=== PATIENT | male | born 1935 | race Caucasian/White ===

== ENCOUNTER 2016-06-18 07:28 | Outpatient (CLI) | payer MEDICARE, OTHER ==
[~2016-06-18] VITALS: Ht 175.3 cm; Wt 84.1 kg
--- NOTE | ~2016-06-18 | HEMODYNAMI ---
PATIENT:JESSE BAILEY MEDICAL RECORD: [id number] : 35 LOCATION:[facility] ADMISSION DATE: 06/18/16 Generatedon:06/18/201610:42 Patient name: JESSE BAILEY Patient #: [id number] : 1935 Date of study: 06/18/2016 Page: Of Hemodynamic Procedure Report Patient Data Patient Demographics Procedure consent was obtained First Name: JESSE Gender: Male Last Name: LINUS : 1935 Middle Initial: L Age: 81 year(s) Patient #: [id number] Race: Unknown SSN: [id number] Additional ID: [id number] Contact details Address: [address] [place] [address] [place] State: [place] City: [place] Zip code: [address] Past Medical History Allergies Allergen Reaction Date Comments Reported Other allergy 06/18/2016 NIACIN, MILK Admission Admission Data Admission Date: 06/18/2016 Admission Time: 7:28 Arrival Date: 06/18/2016 Arrival Time: 9:30 Admit Source: Other Insurance Payor: Medicare Height (in.): 69 BSA: 1.99 (m2) Height (cm.): 175.26 BMI: 27.17 (kg/m2) Weight (lbs.): 184 Weight (kg.): 83.46 Lab Results Lab Result Date: 06/18/2016 Lab Result Time: 8:14 Biochemistry Name Units Result Min Max BUN mg/dl 18 --(---*)-- 7 18 Creatinine mg/dl 1.1 --(--*-)-- 0.6 1.3 CBC Name Units Result Min Max Hemoglobin g/dl 14.4 --(*---)-- 13.5 17.5 Procedure Procedure Types Cath Procedure Diagnostic Procedure [facility] w/Coronaries FFR/IVUS Intra-Coronary IVUS Initial PCI Procedure Coronary Stent Initial Procedure Description Procedure Date Procedure Date: 06/18/2016 Procedure Start Time: 10:19 Procedure End Time: 10:40 Procedure Staff Name Function Jairon Eldridge MD Performing Physician Manuel Carmen RT Scrub Katina Venegas RN Nurse Valdez Marsh RT [employer] Agent Amanda Farmer RT Monitor Procedure Data Cath Procedure Fluoroscopy Diagnostic fluoroscopy Total fluoroscopy Time: 7.9 time: 7.9 min min Diagnostic fluoroscopy Total fluoroscopy dose: dose: 1358 mGy 1358 mGy Contrast Material Contrast Material Type Amount (ml) Isovue 370 157 Entry Location Entry Primary Successful Side Size Upsize Upsize Entry Closure Huffman ccessful Closure Location (Fr) 1 (Fr) 2 (Fr) Remarks Device Remarks Radial Right 6 Fr Mechanical artery Short Compression Estimated blood loss: 5 ml Diagnostic catheters Device Type Used For End Catheter Placement Terumo 5Fr Jose 110cm Multi-vessel catheter Angiography Cordis Infinity 5Fr AR 2 Right Coronary MOD catheter Angiography Procedure Complications No complications Procedure Medications Medication Administration Route Dosage Oxygen NC 2 l/min Heparin Flush Bag added to field 2 bags (1000units/500ml NS) Lidocaine 2% added to field 20 Radial Cocktail added to field 1 syringe (Verapomil 2mg/Nitro 400mcg/Heparin 1500units) Benadryl I.V. 50 mg Plavix P.O. 75 mg Versed I.V. 1 mg Fentanyl I.V. 50 mcg Radial Cocktail I.A. 1 syringe (Verapomil 2mg/Nitro 400mcg/Heparin 1500units) Versed I.V. 1 mg Fentanyl I.V. 50 mcg Fentanyl I.V. 50 mcg Heparin Bolus I.V. 4000 units Hemodynamics Rest BSA: 1.99 (m2) HGB: 14.4 (g/dl) O2 Consumption: Estimated: 209.82 (ml/min) O2 Co nsumption indexed: Estimated:105.44 (ml/min/m) Heart Rate: 47 (bpm) Pressure Samples Time Site Value (mmHg) Purpose Heart Use Rate(bpm) 10:21 LV 71/14,15 Snapshot 97 10:22 AO 110/44(70) Pullback 62 10:22 LV 110/-8,13 Pullback 62 Gradients Valve Time Site 1 Site 2 Mean SEP/DFP Peak To Heart Use (mmHg) (sec/min) Peak Rate (mmHg) (bpm) Aortic 10:22 LV AO 4 19 0 62 110/-8,13 110/44(70) Calculations Valve P-P Mean Valve Index Valve Source Name Gradient Area Flow (cm2) Aortic 0 4 0 4 Snapshots Pre Cath Intra NCS Post Cath Vital Signs Time Heart Resp SPO2 NIBP (mmHg) Rhythm Pain Sedation Rate (ipm) (%) Status Level (bpm) 9:34:18 48 16 100 138/74(126) SB 0 (11) 10(A) , No pain 9:39:38 50 16 100 203/78(185) SB 0 (11) 10(A) , No pain 9:44:16 52 19 99 200/76(167) SB 0 (11) 10(A) , No pain 9:48:49 53 16 98 184/79(139) SB 0 (11) 10(A) , No pain 9:53:19 51 16 96 161/70(137) SB 0 (11) 10(A) , No pain 9:57:46 50 16 95 142/63(119) SB 0 (11) 10(A) , No pain 10:02:10 51 18 96 140/62(118) SB 0 (11) 10(A) , No pain 10:06:32 51 17 95 140/66(110) SB 0 (11) 10(A) , No pain 10:10:58 49 15 95 136/59(110) SB 0 (11) 10(A) , No pain 10:15:57 50 16 95 Measuring SB 0 (11) 10(A) , No pain 10:15:59 50 16 95 133/65(108) SB 0 (11) 10(A) , No pain 10:20:21 49 25 95 151/61(126) SB 0 (11) 9(A) , No pain 10:24:40 54 16 96 131/66(112) SB 0 (11) 9(A) , No pain 10:28:58 55 18 97 149/66(118) SB 0 (11) 9(A) , No pain 10:33:57 53 16 97 Measuring SB 0 (11) 9(A) , No pain 10:34:23 63 16 97 139/63(114) SB 0 (11) 9(A) , No pain 10:38:43 55 16 98 158/72(126) SB 0 (11) 9(A) , No pain 10:40:24 52 12 97 160/72(128) SB 0 (11) 9(A) , No pain Medications Time Medication Route Dose Verified Delivered Reason Note s Effectiveness by by 9:30:55 Plavix P.O. 75 mg Jairon Katina for Chente Venegas RN antiplatelet therapy 9:32:44 Oxygen NC 2 l/min Jairon Katina Per physician Chente Venegas RN 9:32:51 Heparin Flush added 2 bags Jairon De La O for local Bag to Cehnte Eldridge MD anesthetic (1000units/500ml field NS) 9:32:57 Lidocaine 2% added 20ml Jaironjuanito De La O used for to vial Chente Eldridge MD procedure field 9:33:03 Radial Cocktail added 1 Jairon Jairon used for (Verapomil to syringe Chente Eldridge MD procedure 2mg/Nitro field 400mcg/Heparin 1500units) 9:33:12 Benadryl I.V. 50 mg Jairon Katina Per physician Chente Venegas RN 10:16:08 Versed I.V. 1 mg Jairon Katina for sedation Chente Venegas RN 10:16:14 Fentanyl I.V. 50 mcg Jairon Katina for sedation Chente Venegas RN 10:18:03 Fentanyl I.V. 50 mcg Jairon Katina for sedation Chente Venegas RN 10:18:55 Versed I.V. 1 mg Jairon Katina for sedation Chente Venegas RN 10:20:49 Radial Cocktail I.A. 1 Jairon Jairon for (Verapomil syringe Chente Eldridge MD vasodilation 2mg/Nitro 400mcg/Heparin 1500units) 10:21:13 Fentanyl I.V. 50 mcg Jairon Katina for sedation Chente Venegas RN 10:28:20 Heparin Bolus I.V. 4000 Jairon Katina for dose units Chente Venegas RN anticoagulation verified wt dr eldridge Procedure Log Time Note 9:10:31 Valdez Marsh RT(R) sent for patient. Start room use. 9:26:26 ACC Patient presents with Stable Angina CCS Anginal Class 2--Slight limitation of ordinary activity. 9:26:29 Diagnostic Cath status Elective 9:26:45 Time tracking: Regular hours 9:26:49 Plan of Care:Hemodynamics will remain stable., Cardiac rhythm will remain stable., Comfort level will be maintained., Respiratory function will remain adequate., Patient/ family verbilizes understanding of procedure., Procedure tolerated without complication., Recovers from procedure without complications.. 9:26:53 Patient received from Outpatients to CCL 1 Alert and oriented. Tansferred to table in Supine position. 9:26:54 Warm blankets applied, and lee hugger turned on for patient comfort. 9::54 Correct patient and procedure confirmed by team. 9:26:55 Signed procedure consent form obtained from patient. 9:26:56 ECG and BP/O2 sat monitors applied to patient. 9:30:01 H&P Date Dictated: 06/14/2016 Within 30 days and on chart., H&P Addendum completed by physician on day of procedure. (MUST COMPLETE FOR ALL OUTPATIENTS). 9:30:02 Pre-procedure instructions explained to patient. 9:30:02 Pre-op teaching completed and patient verbalized understanding. 9:30:03 Family in waiting room. 9:30:05 Patient NPO since Midnight. 9:30:26 Patient allergic to Other allergy NIACIN, MILK 9:30:41 Is the patient allergic to Iodine/contrast media? No. 9:30:55 Plavix 75 mg P.O. was given by Katina Venegas RN; for antiplatelet therapy; 9:30:55 Is patient on blood thinner?Yes 9:31:02 ACC The patient was administered the following blood thiners within the last 24 hours: None 9:31:04 Patient diabetic? Yes. 9:31:05 If diabetic: On Metformin? No 9:31:08 Previous problem with sedation/anesthesia? No ? 9:31:09 Snore? Yes 9:31:11 Sleep apnea? Yes 9:31:12 Deviated septum? No 9:31:13 Opens mouth fully? Yes 9:31:14 Sticks out tongue? Yes 9:31:17 Airway obstruction? Yes COPD 9:31:22 Dentures? No ? 9:31:25 Pre procedure: right dorsailis pedis pulse 1+ Palpable, but thready & weak; easily obliterated 9:31:27 Modified Linus's test Ulnar < 7 seconds 9:31:29 Patient pain scale 0/10 ?. 9:31:36 IV patent on arrival in left forearm with 0.9% NaCl at [facility]. 9:31:39 Lab results completed and on chart. 9:32:19 Lab Result : BUN 18 mg/dl 9:32:19 Lab Result : Hemoglobin 14.4 g/dl 9:32:19 Lab Result : Creatinine 1.1 mg/dl 9:32:31 Right Radial & Right Groin area was prepped with chlora-prep and draped in sterile fashion 9:32:32 Alarms reviewed by R. N. 9:32:33 Sharps counted by scrub and verified by R.N. 9:32:44 Oxygen 2 l/min NC was given by Katina Venegas RN; Per physician; 9:32:51 Heparin Flush Bag (1000units/500ml NS) 2 bags added to field was given by Jairon Eldridge MD; for local anesthetic; 9:32:57 Lidocaine 2% 20ml vial added to field was given by Jairon Eldridge MD; used for procedure; 9:32:59 Use device set Radial Dx 9:33:02 Tegaderm 4 x 4 opened to sterile field. 9:33:03 Radial Cocktail (Verapomil 2mg/Nitro 400mcg/Heparin 1500units) 1 syringe added to field was given by Jairon Eldridge MD; used for procedure; 9:33:03 Acist Hand Control opened to sterile field. 9:33:03 Acist Manifold opened to sterile field. 9:33:04 Acist Syringe opened to sterile field. 9:33:05 Cardinal Cath Pack opened to sterile field. 9:33:05 Bag Decanter opened to sterile field. 9:33:05 Terumo 6Fr Slender Glidesheath opened to sterile field. 9:33:06 St Fantasma 260cm J .035 wire opened to sterile field. 9:33:12 Benadryl 50 mg I.V. was given by Katina Venegas RN; Per physician; 9:33:13 Vital chart was started 9:33:27 Rhythm: sinus rhythm 9:33:29 Full Disclosure recording started 9:34:16 Admit Source: Other 9:34:20 Patient Height : 175.26 cm 9:34:22 Patient Weight : 83.46 kg 9:34:36 Baseline sample Acquired. 9:40:51 Arrival Date: 06/18/2016 9:30:00 AM 9:40:59 Insurance Payor : Medicare 10:13:25 Physician paged 10:15:39 Physician arrived 10:15:40 --------ALL STOP TIME OUT------ 10:15:41 Final Timeout: patient, procedure, and site verified with staff and physician. All members of the team are in agreement. 10:15:45 Right Radial & Right Groin site verified by team. 10:15:49 Physical assessment completed. ASA score P 2 - A patient with mild systemic disease as per Jairon Eldridge MD. 10:15:53 Sedation plan: IV Moderate Sedation Versed, Fentanyl 10:16:08 Versed 1 mg I.V. was given by Katina Venegas RN; for sedation; 10:16:14 Fentanyl 50 mcg I.V. was given by Katina Venegas RN; for sedation; 10:18:03 Fentanyl 50 mcg I.V. was given by Katina Venegas RN; for sedation; 10:18:55 Versed 1 mg I.V. was given by Katina Venegas RN; for sedation; 10:19:07 Procedure started. 10:19:11 Local anesthetic to right radial artery with Lidocaine 2% by Jairon Eldridge MD.INITIAL ACCESS ONLY 10:19:24 A 6 Fr Short sheath was inserted into the Right Radial artery 10:20:36 A PeeplePasso 5Fr Jose 110cm catheter was advanced over the wire and used for Multi-vessel Angiography. 10:20:49 Radial Cocktail (Verapomil 2mg/Nitro 400mcg/Heparin 1500units) 1 syringe I.A. was given by Jairon Eldridge MD; for vasodilation; 10:21:13 Fentanyl 50 mcg I.V. was given by Katina Venegas RN; for sedation; 10:21:41 LV hemodynamics recorded. 10:21:42 LV gram done using STAPLES 10::45 Injector settings: Ml/sec: 5, Volume: 15, 10:22:15 EF : 60 % 10:22:53 LCA angiography performed. 10::56 Injector settings: Ml/sec: 3, Volume: 6, 10:23:39 Douglas Whisper J 300cm 0.014 guide wire opened to sterile field. 10:23:40 The TechMap BasixCompak Inflation Kit opened to sterile field. 10:24:19 Terumo TR Band Standard opened to sterile field. 10:24:36 Catheter removed. 10:24:40 A Cordis Infinity 5Fr AR 2 MOD catheter was advanced over the wire and used for Right Coronary Angiography. 10:25:56 RCA angiography performed. 10:26:00 Injector settings: Ml/sec: 3, Volume: 6, 10:27:10 [place] IVUS Catheter opened to sterile field. 10:27:16 Catheter removed. 10:27:21 Proceeding to intervention. 10:27:53 Cordis 6FR XBLAD 3.5 guide catheter opened to sterile field. 10:28:17 6 Fr xblad 3.5 guide catheter was inserted over the wire 10:28:20 Heparin Bolus 4000 units I.V. was given by Katina Venegas RN; for anticoagulation; dose verified wtih dr eldridge 10:28:23 whisper wire advanced. 10:28:26 Wire advanced across lesion. 10:28:37 IVUS catheter advanced over wire. 10:29:00 IVUS pass to LAD lesion performed. 10:32:07 IVUS catheter removed over wire. 10:34:19 Inflation number: 1 A [place] Sci Ellis 3.5 X 20 balloon was prepped and advanced across the Prox LAD, then inflated to 13 KATERYNA for 0:10 (min:sec). 10:34:28 Inflation number: 2 The [place] Sci Ellis 3.5 X 20 balloon was reinflated across the Prox LAD, to 13 KATERYNA for 0:10 (min:sec). 10:34:41 Balloon removed over the wire. 10:36:47 Inflation Number: 3 A Medtronic Resolute 3.5 X 34 stent was prepped and advanced across the Prox LAD. The stent was deployed at 15 KATERYNA for 0:10 (min:sec). 10:37:56 Stent catheter was removed intact over wire. 10:37:58 Wire removed. 10:37:58 Guide catheter removed. 10:38:23 Sheath removed intact; hemostasis achieved with Mechanical Compression to the Right Radial artery. 10:38:25 Procedure ended.(Physican Out) 10:39:11 Fluoroscopy time 07.90 minutes. 10:39:16 Fluoroscopy dose: 1358 mGy 10:39:16 Flurop Dose total: 1358 10:39:21 Contrast amount:Isovue 370 157ml. 10:39:24 Sharps counted by scrub and verified by R.N. 10:39:27 TR band inflated with 10cc of air. 10:39:28 Insertion/operative site no bleeding no hematoma. 10:39:37 Post right radial artery:stable 10:39:39 Post Procedure Pulses reassessed and unchanged 10:39:42 Post procedure rhythm: unchanged. 10:39:44 Estimated blood loss: 5 ml 10:39:45 Post procedure instruction explained to patient.Patient verbalizes understanding. 10:39:46 Patient needs reinforcement of post procedure teaching. 10:40:04 Procedure type changed to Cath procedure, Diagnostic procedure, LHC, LHC w/Coronaries, FFR/IVUS, Intra-Coronary IVUS Initial, PCI procedure, Coronary Stent Initial 10:40:06 Procedure and supply charges have been captured, reviewed, submitted and are correct. 10:40:11 Procedure Complication : No complications 10:40:12 Vital chart was stopped 10:40:13 See physician's report for complete and final results. 10:40:25 Report given to Post Procedure Room. 10:40:28 Patient transfered to Post Procedure Room with Stretcher. 10:40:31 Procedure ended. 10:40:31 Full Disclosure recording stopped 10:40:42 ACC-PCI Only Patient was given prescriptions, or instructed by Jairon Eldridge MD to start/continue the following medications upon discharge: Plavix 10:40:44 End room use (Document Last) Intervention Summary Intervention Notes Time ActionType Lesion and Equipment Action# Pressure Duration Attributes Used 10:34:19 Inflate Prox LAD [place] 1 13 00:10 balloon Sci Ellis 3.5 X 20 balloon 10:34:28 Reinflate Prox LAD [place] 2 13 00:10 balloon Sci Ellis 3.5 X 20 balloon 10:36:47 [address] stent Prox LAD Medtronic 3 15 00:10 Resolute 3.5 X 34 stent Device Usage Item Name Manufacture Quantity Catalog Number Hospital Part Current [facility] Lot# / Charge Number Stock Stock Serial# Code Tegaderm 4 3M 1 [id number] [id number] [id number] 5 x 4 Acist Hand Acist 1 96991 639946 743417 424410 5 Control Medical Systems Inc Acist Acist 1 82074 276313 448033 897240 5 Manifold Medical Systems Inc Acist Acist 1 31924 241497 927014 510668 20 Syringe Medical Systems Inc Cardinal Cardinal 1 [id number] 135254 96470 048453 5 Cath Pack Health Bag Microtek 1 2002S [id number] 34408 641937 5 Decanter Medical Inc. Terumo 6Fr Terumo 1 [id number] 322823 010731 643286 [address] Fantasma St Fantasma 1 574956 870357 802329 540805 30 260cm J .035 wire Terumo 5Fr Terumo 1 40-3691 604702 696038 072378 5 Jose 110cm catheter Douglas Douglas 1 [id number] 875098 718564 951998 5 Whisper J Vascular 300cm 0.014 guide wire [facility] 1 [id number] 654749 091292 442004 15 BasixMiso Media Medical Inflation Kit Terumo TR Terumo 1 [id number] 044830 947082 833838 40 Band Standard Cordis Cardinal 1 [id number] 987086 740738 865984 20 Infinity Health 5Fr AR 2 MOD catheter [place] 1 [id number] 916868 344198 570442 8 [place] IVUS Catheter Cordis 6FR Cardinal 1 [id number] 237075 580439 588893 10 XBLAD 3.5 Health guide catheter [place] Sci [place] 1 [id number] 362056 492234 663755 1 [id number] Ellis Scientific 3.5 X 20 balloon Medtronic Medtronic 1 [id number] 465052 295427 0 [id number] Resolute 3.5 X 34 stent Signature Audit [place] Stage Time Signature Unsigned Intra-Procedure 06/18/2016 Amanda Farmer 10:42:13 AM RT(R) Signatures Monitor : Amanda Farmer RT Signature : Date : Time : [facility] [address] [place] [address]
--- NOTE | ~2016-06-18 | HEMODYNAMI ---
PATIENT:JESSE BAILEY MEDICAL RECORD: [id number] : 35 [id number] ADMISSION DATE: 06/18/16 Generatedon:06/19/201610:02 Patient name: JESSE BAILEY Patient #: [id number] : 1935 Date of study: 06/19/2016 Page: Of Hemodynamic Procedure Report Patient Data Patient Demographics Procedure consent was obtained First Name: JESSE Gender: Male Last Name: LEO : 1935 [facility] Initial: L Age: 81 year(s) Patient #: [id number] Race: Unknown SSN: [id number] Additional ID: [id number] Contact details Address: [address] [place] [address] circle State: [place] City: [place] Zip code: [address] Past Medical History Allergies Allergen Reaction Date Comments Reported Other allergy 06/18/2016 NIACIN, MILK Other allergy 06/19/2016 niacin,milk Admission Admission Data Admission Date: 06/18/2016 Admission Time: 7:28 Arrival Date: 06/18/2016 Arrival Time: 9:30 Admit Source: Other Insurance Payor: Medicare Room #: D.2115 Height (in.): 69 BSA: 1.99 (m2) Height (cm.): 175.26 BMI: 27.17 (kg/m2) Weight (lbs.): 184 Weight (kg.): 83.46 Lab Results Lab Result Date: 06/18/2016 Lab Result Time: 8:14 Biochemistry Name Units Result Min Max BUN mg/dl 18 --(---*)-- 7 18 Creatinine mg/dl 1.1 --(--*-)-- 0.6 1.3 CBC Name Units Result Min Max Hemoglobin g/dl 14.4 --(*---)-- 13.5 17.5 Procedure Procedure Types Cath Procedure PCI Procedure Coronary Stent Initial Procedure Description Procedure Date Procedure Date: 06/19/2016 Procedure Start Time: 9:48 Procedure End Time: 9:58 Procedure Staff Name Function Jairon Eldridge MD Performing Physician Bethanie Jhaveri RT Scrub Lenny Donnelly RN Nurse Valdez Marsh RT Production Cell Leader Chun Peñaloza RT Monitor Additional PCI Information PCI indication: Staged PCI Procedure Data Cath Procedure Fluoroscopy Diagnostic fluoroscopy Total fluoroscopy Time: 1.5 time: 1.5 min min Diagnostic fluoroscopy Total fluoroscopy dose: 138 dose: 138 mGy mGy Contrast Material Contrast Material Type Amount (ml) Isovue 300 22 Entry Location Entry Primary Successful Side Size Upsize Upsize Entry Closure Succes sful Closure Location (Fr) 1 (Fr) 2 (Fr) Remarks Device Remarks Femoral Right 6 Fr Vascade artery Short Closure System Estimated blood loss: 10 ml Procedure Complications No complications Procedure Medications Medication Administration Route Dosage Oxygen NC 2 l/min Lidocaine 2% added to field 20 Heparin Flush Bag added to field 2 bags (1000units/500ml NS) 0.9% NaCl I.V. 100 ml/hr Versed I.V. 1 mg Fentanyl I.V. 50 mcg Heparin Bolus I.V. 4000 units Versed I.V. 1 mg Fentanyl I.V. 50 mcg Fentanyl I.V. 25 mcg Hemodynamics Rest BSA: 1.99 (m2) HGB: 14.4 (g/dl) O2 Consumption: Estimated: 219.5 (ml/min) O2 Con sumption indexed: Estimated:110.3 (ml/min/m) Heart Rate: 60 (bpm) Snapshots Pre Cath Intra NCS Post Cath Vital Signs Time Heart Resp SPO2 etCO2 [id number] NIBP (mmHg) Rhythm Pain Sedation Rate (ipm) (%) (mmHg) (mmHg) Status Level (bpm) 9:18:43 61 16 96 0 0 170/71(131) NSR 0 (11) 10(A) , No pain 9:23:11 60 15 94 0 0 152/65(125) NSR 0 (11) 10(A) , No pain 9:27:35 60 15 95 0 0 136/62(115) NSR 0 (11) 10(A) , No pain 9:31:57 59 16 94 0 0 130/60(107) NSR 0 (11) 10(A) , No pain 9:36:16 62 16 95 0 0 134/67(103) NSR 0 (11) 10(A) , No pain 9:40:34 60 16 97 0 0 141/65(111) NSR 0 (11) 10(A) , No pain 9:44:52 59 15 97 0 0 135/64(108) NSR 0 (11) 10(A) , No pain 9:49:50 60 16 97 0 0 146/72(117) NSR 0 (11) 9(A) , No pain 9:53:32 64 16 98 0 0 145/71(124) NSR 0 (11) 9(A) , No pain 9:57:54 64 15 98 0 0 151/67(123) NSR 0 (11) 10(A) , No pain Medications Time Medication Route Dose Verified Delivered Reason Notes Effectiveness by by 9:17:52 Oxygen NC 2 Jairon Buffie used for l/min Chente Donnelly RN procedure 9:18:01 Lidocaine 2% added 20ml Jairon Buffie used for to vial Chente Donnelly RN procedure field 9:18:08 Heparin Flush added 2 Jairon Buffie used for Bag to bags Chente Donnelly RN procedure (1000units/500ml field NS) 9:18:37 0.9% NaCl I.V. 100 Jairon Buffie Per physician ml/hr Chente Donnelly RN 9:48:10 Versed I.V. 1 mg Jairon Buffie for sedation Chente Donnelly RN 9:48:15 Fentanyl I.V. 50 Jairon Buffie for sedation mcg Chente Donnelly RN 9:50:31 Heparin Bolus I.V. 4000 Jairon Buffie for verifie d units Chente Donnelly RN anticoagulation with dr eldridge 9:52:42 Versed I.V. 1 mg Jairon Buffie for sedation Chente Donnelly RN 9:52:46 Fentanyl I.V. 50 Jairon Buffie for sedation mcg Chente Donnelly RN 9:54:51 Fentanyl I.V. 25 Jairon Buffie for sedation mcg Chente Donnelly RN Procedure Log Time Note 8:48:30 Informed consent obtained and on chart 8:48:58 Patient Weight : 184 kg 8:48:58 Patient Height : 69 cm 8:49:51 Valdez JHA(R) sent for patient. Start room use. 8:52:58 ACC Patient presents with Stable Angina CCS Anginal Class 2--Slight limitation of ordinary activity. 8:53:16 Time tracking: Regular hours 8:53:20 Plan of Care:Hemodynamics will remain stable., Cardiac rhythm will remain stable., Comfort level will be maintained., Respiratory function will remain adequate., Patient/ family verbilizes understanding of procedure., Procedure tolerated without complication., Recovers from procedure without complications.. 8:56:21 ACCPatient has been prescribed/administered the following anti-anginal medication within the last 2 weeks: None 8:57:17 Diagnostic Cath Status : Elective 8:57:19 PCI Cath Status : Elective 8:57:47 PCI Indication : Staged PCI 9:04:46 Patient received from Med II to CCL 2 Alert and oriented. Tansferred to table in Supine position. 9:04:47 Warm blankets applied, and lee hugger turned on for patient comfort. 9:04:49 Correct patient and procedure confirmed by team. 9:04:49 ECG and BP/O2 sat monitors applied to patient. 9:13:44 H&P Date Dictated: 06/14/2016 Within 30 days and on chart.. 9:13:46 Pre-procedure instructions explained to patient. 9:13:46 Pre-op teaching completed and patient verbalized understanding. 9:13:48 Family in waiting room. 9:13:50 Patient NPO since Midnight. 9:14:09 Patient allergic to Other allergyniacin,milk 9:14:11 Is the patient allergic to Iodine/contrast media? No. 9:14:21 Is patient on blood thinner?Yes 9:14:24 ACC The patient was administered the following blood thiners within the last 24 hours: ACCPlavix 9:15:05 Patient diabetic? No. 9:15:08 Previous problem with sedation/anesthesia? No ? 9:15:09 Snore? Yes 9:15:10 Sleep apnea? Yes 9:15:11 Deviated septum? No 9:15:12 Opens mouth fully? Yes 9:15:13 Sticks out tongue? Yes 9:15:16 Airway obstruction? Yes COPD 9:15:19 Dentures? No ? 9:15:23 Pre procedure: right dorsailis pedis pulse 1+ Palpable, but thready & weak; easily obliterated 9:15:27 Patient pain scale 0/10 ?. 9:15:54 IV patent on arrival in left hand with 0.9% NaCl at [facility]. 9:16:04 Lab results completed and on chart. 9:16:07 Right groin area was prepped with chlora-prep and draped in sterile fashion 9:16:10 Alarms reviewed by R. N. 9:16:11 Sharps counted by scrub and verified by R.N. 9:16:44 Physician paged 9:16:47 Use device set Femoral PCI 9:16:49 Tegaderm 4 x 4 opened to sterile field. 9:16:50 Acist Manifold opened to sterile field. 9:16:51 Acist Syringe opened to sterile field. 9:16:52 Acist Hand Control opened to sterile field. 9:16:52 Bag Decanter opened to sterile field. 9:16:53 Cardinal Cath Pack opened to sterile field. 9:16:58 Terumo 6Fr [place] Sheath opened to sterile field. 9:16:58 St Fantasma 260cm J .035 wire opened to sterile field. 9:16:59 Merit BasixCompak Inflation Kit opened to sterile field. 9:17:27 Vital chart was started 9:17:28 Baseline sample Acquired. 9:17:45 Rhythm: sinus rhythm 9:17:51 Full Disclosure recording started 9:17:52 Oxygen 2 l/min NC was given by Lenny Donnelly RN; used for procedure; 9:18:01 Lidocaine 2% 20ml vial added to field was given by Lenny Donnelly RN; used for procedure; 9:18:08 Heparin Flush Bag (1000units/500ml NS) 2 bags added to field was given by Lenny Donnelly RN; used for procedure; 9:18:37 0.9% NaCl 100 ml/hr I.V. was given by Lenny Donnelly RN; Per physician; 9:27:36 Zero performed for pressure channel P1 9:46:26 Final Timeout: patient, procedure, and site verified with staff and physician. All members of the team are in agreement. 9:46:28 Right groin site verified by team. 9:46:48 Physical assessment completed. ASA score P 2 - A patient with mild systemic disease as per Jairon Eldridge MD. 9:46:51 Sedation plan: IV Moderate Sedation Versed, Fentanyl 9:48:10 Versed 1 mg I.V. was given by Lenny Donnelly RN; for sedation; 9:48:15 Fentanyl 50 mcg I.V. was given by Lenny Donnelly RN; for sedation; 9:48:23 Procedure started. 9:48:26 Local anesthetic to right femoral artery with Lidocaine 2% by Jairon Eldridge MD.INITIAL ACCESS ONLY 9:48:51 A 6 Fr Short sheath was inserted into the Right Femoral artery 9:49:42 Medtronic Launcher 6Fr HS II SH guide catheter opened to sterile field. 9:49:55 Douglas DivvyDownisper J 300cm 0.014 guide wire opened to sterile field. 9:49:59 6 Fr HS II SH guide catheter was inserted over the wire 9:50:05 TradeSyncisper wire advanced. 9:50:31 Heparin Bolus 4000 units I.V. was given by Lenny Donnelly RN; for anticoagulation; verified with dr eldridge 9:51:15 Wire advanced across lesion. 9:52:42 Versed 1 mg I.V. was given by Lenny Donnelly RN; for sedation; 9:52:46 Fentanyl 50 mcg I.V. was given by Lenny Donnelly RN; for sedation; 9:54:24 Inflation Number: 1 A Medtronic Resolute 2.5 X 22 stent was prepped and advanced across the Mid RCA. The stent was deployed at 13 KATERYNA for 0:10 (min:sec). 9:54:33 Stent catheter was removed intact over wire. 9:54:34 Wire removed. 9:54:34 Guide catheter removed. 9:54:43 Vascade 6/7 Fr Closure Device opened to sterile field. 9:54:50 Sheath removed intact; hemostasis achieved with Vascade Closure System to the Right Femoral artery. 9:54:51 Fentanyl 25 mcg I.V. was given by Lenny Donnelly RN; for sedation; 9:54:52 Procedure ended.(Physican Out) 9:55:25 Fluoroscopy time 01.50 minutes. 9:55:48 Flurop Dose total: 138 9:55:48 Fluoroscopy dose: 138 mGy 9:56:08 Contrast amount:Isovue 300 22ml. 9:56:10 Sharps counted by scrub and verified by R.N. 9:56:12 Insertion/operative site no bleeding no hematoma. 9:56:18 Post-op/insertion site Right Femoral artery dressed using a 4 x 4 and Tegaderm. 9:56:22 Post right femoral artery:stable, soft, clean and dry 9:56:24 Post Procedure Pulses reassessed and unchanged 9:56:27 Post-procedure physical assessment completed. ASA score P 2 - A patient with mild systemic disease as per Jairon Eldridge MD. 9:56:29 Post procedure rhythm: unchanged. 9:56:31 Estimated blood loss: 10 ml 9:56:33 Post procedure instruction explained to patient.Patient verbalizes understanding. 9:56:33 Patient needs reinforcement of post procedure teaching. 9:58:06 Procedure and supply charges have been captured, reviewed, submitted and are correct. 9:58:09 Procedure Complication : No complications 9:58:11 Vital chart was stopped 9:58:12 See physician's report for complete and final results. 9:58:14 Report given to PCU. 9:58:16 Patient transfered to PCU with Stretcher. 9:58:18 Procedure ended. 9:58:18 Full Disclosure recording stopped 9:58:25 ACC-PCI Only Patient was given prescriptions, or instructed by Jairon Eldridge MD to start/continue the following medications upon discharge: Plavix 9:59:54 End room use (Document Last) Intervention Summary Intervention Notes Time ActionType Lesion and Equipment Action# Pressure Duration Attributes Used 9:54:24 Place stent Mid RCA Medtronic 1 13 00:10 Resolute 2.5 X 22 stent Device Usage Item Name Manufacture Quantity Catalog Hospital Part Current Minima l Lot# / Number Charge Number Stock Stock Serial# Code Tegaderm 4 3M 1 [id number] 607106 342548 5 x 4 Acist Acist 1 22192 202965 633209 155246 5 Manifold Medical Systems Inc Acist Acist 1 11389 408696 814362 338692 20 Syringe Medical Systems Inc Acist Hand Acist 1 34468 320094 972900 006853 5 Control Medical Systems Inc Bag Microtek 1 2002S 811031 29767 859607 5 Decanter Medical Inc. Cardinal Cardinal [address] 325559 31384 464392 5 Cath Pack Health Terumo 6Fr Terumo 1 [id number] 887051 801347 562484 [address] Fantasma 1 634365 801560 274122 243129 30 260cm J .035 wire Merit Merit 1 [id number] 665742 669256 910246 15 BasixCompak Medical Inflation Kit Medtronic Medtronic 1 [id number] 802530 52076 228658 1 Launcher 6Fr HS II SH guide catheter Medtronic Medtronic 1 [id number] 578610 756059 1 [id number] Resolute 2.5 X 22 stent Vascade 11/07 Cardiva 1 [id number] 196192 871009 487776 5 Fr Closure Medical, Device Inc. Douglas Douglas 1 [id number] 252281 698462 288870 5 Whisper J Vascular 300cm 0.014 guide wire Signature Audit [place] Stage Time Signature Unsigned Intra-Procedure 06/19/2016 Chun Peñaloza 10:02:09 AM RT(R) Signatures Monitor : Chun Peñaloza RT Signature : Date : Time : [id number] [place] [address]
[~2016-06-18 07:28] MED LIST: BACTRIM DS TABL1 TAB PO; DEMEROL50 MG PO
[2016-06-18] MEDS ORDERED: GEMFIBROZIL600 MG PO (08:21)
[2016-06-18] MEDS ORDERED: LOPRESSOR25 MG PO (08:21)
[2016-06-18] MEDS ORDERED: NITROSTAT0.4 MG SL (08:22)
[2016-06-18] MEDS ORDERED: NORVASC5 MG PO (08:22)
[2016-06-18] MEDS ORDERED: TRAVATAN Z2.5 ML EACH EYE (08:22)
[2016-06-18] MEDS ORDERED: ASPIRIN81 MG PO (08:23)
[2016-06-18] MEDS ORDERED: PLAVIX75 MG PO (08:23)
[2016-06-18] MEDS ORDERED: ISOSORBIDE DINI30 MG PO (08:24)
[2016-06-18] MEDS ORDERED: DIFLUCAN100 MG PO (08:24)
[2016-06-18] MEDS ORDERED: MACRODANTIN100 MG PO (08:25)
[2016-06-18] MEDS ORDERED: PHENAZOPYRIDIN200 MG PO (08:26)
[2016-06-18] MEDS ORDERED: GLUCOPHAGE500 MG PO (08:27)
[2016-06-18] MEDS ORDERED: LOMOTIL TABLET1 TAB PO (08:28)
[2016-06-18 08:36] LABS: CALCIUM 8.9 mg/dL (8.5-10.1); CREATININE - SERUM 1.1 mg/dL (0.6-1.3)
[2016-06-18 08:40] VITALS: BP 149/67; BMI 27.2
[2016-06-18 08:55] LABS: BASOPHILS 0.2 % (0.0-2.0); HEMATOCRIT 43.1 % (42.0-54.0); HEMOGLOBIN 14.4 g/dL (13.5-17.5); IMMATURE GRANULOCYTES 0.5 % (0-5); LYMPHOCYTES 26.6 % (15-50); MCHC 33.4 g/dL (31.0-37.0); MCV 95.8 fL (80.0-100.0); MEAN PLATELET VOLUME 10.3 fL (7.4-10.4); MONOCYTES 10.2 % (2-11); NEUTROPHILS 60.5 % (40-80); PLATELET COUNT 141 10x3/uL (130-400); WBC 4.4 10x3/uL (4.8-10.8)
--- NOTE | 2016-06-18 11:06 | NUR ---
CHEST PAIN DENIED WITH HR 52 SB. BP 169/74 TR BAND TO R/WRIST CDI NO BLEEDING NO HEMATOMA NOTED. FAMILY AT SIDE WILL MONITOR
--- NOTE | 2016-06-18 11:33 | NUR ---
CHEST PAIN DENIED WITH TR BAND TO R/WRIST CDI NO BLEEDING NO HEMAOTMA NOTED. VSS NO DISTRESS WILL CONTINUE TO MONITOR
--- NOTE | 2016-06-18 12:00 | NUR ---
1200 SITTING WITH HOB UP 30 DEGREES SANDWICH AND SODA TO BEDSIDE. CHEST PAIN IS DENIED. VSS TR BAND TO R/WRIST CDI NO BLEEDING NO HEMATOMA NOTED. AT SIDE
--- NOTE | 2016-06-18 12:31 | NUR ---
CHEST PAIN DENIED WITH VSS TR BAND TO R/WRIST CDI NO BLEEDING NO HEMATOMA NOTED WILL MONITOR
--- NOTE | 2016-06-18 14:09 | NUR ---
1330 SITTING UP IN BED TALKING WITH . NSBRADY RATE 47, W NO C/O CHEST PAIN. PULSES PALP X 4. R WRIST TR BAND C/D/I WITH NO HEMATOMA OR BLEEDING.
--- NOTE | 2016-06-18 14:09 | NUR ---
1409 4CC AIR REMOVED FROM R WRIST TR BAND. WILL MONITOR CLOSELY FOR BLEEDING. ALL VITALS WNL. AT BEDSIDE.
--- NOTE | 2016-06-18 14:35 | NUR ---
4 CC AIR REMOVED FROM TR BAND WITH NO BLEEDING NOTED. VSS WITH CHEST PAIN DENIED. REPORT CALLED TO SHAD ON MED 2 PATIENT TRANSPORTED VIA STRETCHER TO ROOM 2114
--- NOTE | 2016-06-18 14:50 | NUR ---
RECIVED FROM CATH RR, PER BED. TR-BAND TO RT WRIST. 2 CC OF AIR REMAINING. AT SIDE. ADMIT ASSESSMENT PER RN
--- NOTE | 2016-06-18 15:39 | NUR ---
RECIEVED FROM CUSTOMS INVESTIGATOR BY BED. OREINTED TO ROOM. CALL LIGHT IN REACH. WILL CONT. PLAN OF CARE.
[2016-06-18 15:44] VITALS: Ht 175.3 cm; Wt 84.1 kg
--- NOTE | 2016-06-18 16:56 | NUR ---
WITHOUT CHANGES OR DISTRESS NOTED AT THIS TIME. HOSEA NEEDS. AT SIDE.
[2016-06-18 21:43] VITALS: BP 161/69
[2016-06-19 01:28] VITALS: BP 167/71
[2016-06-19 05:45] VITALS: BP 153/64
[2016-06-19 08:00] VITALS: BP 132/66
--- NOTE | 2016-06-19 08:03 | NUR ---
ASSESSMENT DONE. DENIES NEEDS.
--- NOTE | 2016-06-19 09:08 | NUR ---
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
--- NOTE | 2016-06-19 09:39 | NUR ---
IN COMMERCIAL AIRLINE PILOT FOR ANGEOGRAM. WILL CONT. PLAN OF CARE.
[2016-06-19 12:00] VITALS: BP 157/69
--- NOTE | 2016-06-19 14:23 | NUR ---
DC AND RX GIVEN TO PT
--- NOTE | 2016-06-19 15:15 | NUR ---
DC HOME PER PERSONAL CAR
--- NOTE | 2016-06-22 16:40 | OP ---
PATIENT NAME: JESSE BAILEY MEDICAL RECORD: [id number] :35 LOCATION:D.CAT ADMISSION DATE: SURGEON: EDNA REYNOLDS MD DATE OF OPERATION: 06/18/2016 PROCEDURES: 1. PTCA, stent LAD. 2. Intravascular ultrasound of the LAD. 3. Left heart catheterization. 4. Selective coronary angiography. 5. Left ventriculogram. INDICATION: Angina and coronary artery disease. PROCEDURE IN DETAIL: After informed consent was obtained and after a detailed explanation of the risks, benefits, as well as alternative therapies, the patient elected to proceed with angiogram and angioplasty. The right radial area was prepped and draped in normal sterile fashion. The right radial artery was cannulated via modified Seldinger technique with placement of 6-Wallisian sheath. All catheters exchanged through this sheath. FINDINGS: The left ventriculogram was performed in standard 30-degree STAPLES view, reveals good cardiac wall motion throughout all segments. Overall ejection fraction estimated at 55%. No gradient across the aortic valve. SELECTIVE CORONARY ANGIOGRAPHY: 1. Left main is with no significant angiographic disease. 2. Left anterior descending has a 72% stenosis proximally confirmed by intravascular ultrasound. 3. Left circumflex shows moderate irregularities, but no flow-limiting stenosis. 4. The right coronary has previously placed stents. There is at least 70% in-stent restenosis in the mid vessel. This is poorly visualized secondary to poor seating of the catheter, this would be better approach with the femoral approach. PTCA STENT OF THE LAD: The stent used was a 3.5 x 34 mm Resolute taken to 17 atmospheres. Result was 0% residual stenosis. OVERALL IMPRESSION: Successful percutaneous transluminal coronary angioplasty stent of the left anterior descending going from greater than 72% initial stenosis confirmed by intravascular ultrasound to 0% residual. TRANSINT:[id number] Voice Confirmation ID: [id number] DOCUMENT ID: [id number] EDNA REYNOLDS MD at 1640 CC: [id number] DICTATION DATE: 06/18/16 1046 LAP HAND TOOL: 06/18/16 1054 DEP CLI 06/19/16 [place] [address]
--- NOTE | 2016-06-22 16:40 | DS ---
PATIENT:JESSE BAILEY :35 MEDICAL RECORD: [id number] DISCHARGE SUMMARY ADMISSION DATE: 06/18/16 DISCHARGE DATE: 06/19/16 DISCHARGE DIAGNOSES: 1. Angina. 2. Coronary artery disease. 3. Percutaneous transluminal coronary angioplasty stent left anterior descending and right coronary artery this admission. HOSPITAL COURSE: This is a gentleman who presents with anginal symptomatology, found to have 2-vessel coronary artery disease of the LAD and RCA, underwent successful PTCA stent of above territories. He had an uneventful postop course. He was discharged home with the addition of aspirin and Plavix to his medical regimen. We will follow up with [facility] in 1 month. TRANSINT:[id number] Voice Confirmation ID: [id number] DOCUMENT ID: [id number] EDNA REYNOLDS MD at 1640 CC: [id number] DICTATION DATE: 06/19/16 0957 IRONWORKER MACHINE OPERATOR: 06/19/16 1020 DEP CLI 06/19/16 [id number] [place] [address]
--- NOTE | 2016-06-22 16:40 | OP ---
PATIENT NAME: JESSE BAILEY MEDICAL RECORD: [id number] :35 LOCATION:D.CAT ADMISSION DATE: SURGEON: EDNA REYNOLDS MD DATE OF OPERATION: 06/19/2016 PROCEDURES: 1. PTCA, stent RCA. 2. Selective coronary angiography. INDICATION: Angina and coronary artery disease. PROCEDURE IN DETAIL: After informed consent was obtained and after detailed explanation of risks, benefits, as well as alternative therapies, the patient elected to proceed with angiogram and angioplasty. The right femoral area was prepped and draped in normal sterile fashion. The right femoral artery was cannulated via modified Seldinger technique with placement of 6-Yakut sheath. All catheters exchanged through this sheath. FINDINGS: The right coronary has 70% in-stent restenosis in the mid vessel. This was addressed with a 2.5 x 22 mm Resolute stent. Result was 0% residual stenosis. OVERALL IMPRESSION: Successful percutaneous transluminal coronary angioplasty stent of the right coronary artery going from 70% initial stenosis to 0% residual. TRANSINT:[id number] Voice Confirmation ID: [id number] DOCUMENT ID: [id number] EDNA REYNOLDS MD at 1640 CC: [id number] DICTATION DATE: 06/19/16 0958 AMBULANCE DRIVER: 06/19/[address] [facility] CLI 06/19/[address] [address]
== END 2016-06-19 15:16 | disposition home or self-care (01) ==
LOC: D.CATH 07:28 → D.M2 14:38 → D.SDCHOLD 06-19 13:55 → D.CATH 06-19 15:16
PROVIDERS: Internal Medicine Interventional Cardiology
DX: I25.119 Atherosclerotic heart disease of native coronary artery with unspecified angina pectoris (principal); R06.02 Shortness of breath; E78.5 Hyperlipidemia, unspecified; I10 Essential (primary) hypertension
CPT/HCPCS: 93458; 92978; C9600 ×2

== ENCOUNTER 2016-10-28 13:33 | Emergency (ER) | payer MEDICARE, OTHER ==
[2016-06-18 15:44] VITALS: BMI 27.0
[~2016-10-28 13:33] MED LIST changes: +ASPIRIN81 MG PO; +DIFLUCAN100 MG PO; +GEMFIBROZIL600 MG PO; +GLUCOPHAGE500 MG PO; +ISOSORBIDE DINI30 MG PO; +LOMOTIL TABLET1 TAB PO; +LOPRESSOR25 MG PO; +MACRODANTIN100 MG PO; +NITROSTAT0.4 MG SL; +NORVASC5 MG PO; +PHENAZOPYRIDIN200 MG PO; +PLAVIX75 MG PO; +TRAVATAN Z2.5 ML EACH EYE
[2016-10-28 14:32] LABS: BASOPHILS 0.2 % (0-2); EOSINOPHILS 2.8 % (0-7); HEMATOCRIT 43.6 % (42.0-54.0); HEMOGLOBIN 14.3 g/dL (13.5-17.5); IMMATURE GRANULOCYTES 0.2 % (0-5); LYMPHOCYTES 27.4 % (15-50); MCH 32.3 pg (26.0-34.0); MCHC 32.8 g/dL (31.0-37.0); MCV 98.4 fL (80.0-100.0); MEAN PLATELET VOLUME 9.9 fL (7.4-10.4); MONOCYTES 9.1 % (2-11); NEUTROPHILS 60.3 % (40-80); PLATELET COUNT 147 10x3/uL (130-400); RBC 4.43 10x6/uL (4.20-6.10); RDW 13.2 % (11.5-14.5); WBC 4.6 10x3/uL (4.8-10.8)
[2016-10-28 15:02] LABS: ALBUMIN 3.5 g/dL (3.4-5.0); BILIRUBIN - TOTAL 0.68 mg/dL (0.2-1.3); CALCIUM 8.7 mg/dL (8.5-10.1); CARBON DIOXIDE 22.7 mmol/L (21.0-32.0); CREATININE - SERUM 1.2 mg/dL (0.6-1.3); POTASSIUM - SERUM 3.7 mmol/L (3.5-5.1); PROTEIN - SERUM 7.4 g/dL (6.4-8.2)
== END 2016-10-28 16:21 | disposition home or self-care (01) ==
LOC: D.ER 13:33
PROVIDERS: Emergency Medicine
DX: J20.9 Acute bronchitis, unspecified (principal); I21.3 ST elevation (STEMI) myocardial infarction of unspecified site

== ENCOUNTER 2017-03-04 08:40 | Outpatient (CLI) | payer MEDICARE, OTHER ==
--- NOTE | ~2017-03-04 | HEMODYNAMI ---
PATIENT:JESSE BAILEY MEDICAL RECORD: [id number] : 35 LOCATION:DTEO ADMISSION DATE: 03/04/17 Generatedon:03/04/201710:48 Patient name: JESSE BAILEY Patient #: [id number] : 1935 Date of study: 03/04/2017 Page: Of Hemodynamic Procedure Report Patient Data Patient Demographics Procedure consent was obtained First Name: JESSE Gender: Male Last Name: LINUS : 1935 Middle Initial: L Age: 82 year(s) Patient #: [id number] Race: Unknown SSN: [id number] Additional ID: [id number] Contact details Address: [address] [place] [address] circle State: [place] City: [place] Zip code: [address] Past Medical History Allergies Allergen Reaction Date Comments Reported Other allergy 06/18/2016 NIACIN, MILK Other allergy 06/19/2016 niacin,milk Other allergy 03/04/2017 Niacin Admission Admission Data Admission Date: 03/04/2017 Admission Time: 8:40 Procedure Procedure Types Cath Procedure Diagnostic Procedure [facility] w/Coronaries PCI Procedure Coronary Stent Initial Miscellaneous Procedures Moderate Sedation up to 15 minutes Procedure Description Procedure Date Procedure Date: 03/04/2017 Procedure Start Time: 10:33 Procedure End Time: 10:48 Procedure Staff Name Function Jairon Eldridge MD Performing Physician Licha Bunn RT Scrub Jose Corrales RN Nurse Tiffany Tran RT Monitor Procedure Data Cath Procedure Fluoroscopy Diagnostic fluoroscopy Total fluoroscopy Time: 2.8 time: 2.8 min min Diagnostic fluoroscopy Total fluoroscopy dose: 642 dose: 642 mGy mGy Contrast Material Contrast Material Type Amount (ml) Isovue 300 71 Entry Location Entry Primary Successful Side Size Upsize Upsize Entry Closure Huffman ccessful Closure Location (Fr) 1 (Fr) 2 (Fr) Remarks Device Remarks Radial Right 6 Fr Mechanical artery Short Compression Estimated blood loss: 10 ml Diagnostic catheters Device Type Used For End Catheter Placement Diagnostic Terumo 5Fr LV Angiography Franklin 110cm catheter Diagnostic Terumo 5Fr Left Coronary Franklin 110cm catheter Angiography Diagnostic Terumo 5Fr Right Coronary Franklin 110cm catheter Angiography Procedure Complications No complications Procedure Medications Medication Administration Route Dosage 0.9% NaCl I.V. 100 ml/hr Oxygen NC 2 l/min Heparin Flush Bag added to field 2 bags (1000units/500ml NS) Lidocaine 2% added to field 20 Radial Cocktail added to field 1 syringe (Verapomil 2mg/Nitro 400mcg/Heparin 1500units) Versed I.V. 1 mg Fentanyl I.V. 50 mcg Radial Cocktail I.A. 1 syringe (Verapomil 2mg/Nitro 400mcg/Heparin 1500units) Heparin Bolus I.V. 4000 units Hemodynamics Rest Heart Rate: 59 (bpm) Snapshots Pre Cath Intra NCS Post Cath Vital Signs Time Heart Resp SPO2 etCO2 [id number] NIBP (mmHg) Rhythm Pain Sedation Rate (ipm) (%) (mmHg) (mmHg) Status Level (bpm) 10:25:07 60 21 95 0 0 184/89(158) NSR 0 (11) 10(A) , No pain 10:30:00 54 28 92 0 0 161/77(133) NSR 0 (11) 10(A) , No pain 10:34:55 54 16 93 0 0 161/77(131) NSR 0 (11) 10(A) , No pain 10:39:42 61 23 93 0 0 138/70(112) NSR 0 (11) 9(A) , No pain 10:44:31 60 16 94 0 0 146/73(122) NSR 0 (11) 9(A) , No pain Medications Time Medication Route Dose Verified Delivered Reason Note s Effectiveness by by 10:26:45 0.9% NaCl I.V. 100 Jose Jose Per physician ml/hr Savanna Corrales RN RN 10:26:58 Oxygen NC 2 l/min Jose Jose Per physician Savanna Corrales RN RN 10:27:12 Heparin Flush added 2 bags Jose Jose used for Bag to Savanna Corrales procedure (1000units/500ml field DEL CASTILLO RN NS) 10:27:24 Lidocaine 2% added 20ml Jose Jose for local to vial Lorigan Lorigan anesthetic field RN RN 10:27:43 Radial Cocktail added 1 Jose Jose used for (Verapomil to syringe Savanna Corrales procedure 2mg/Nitro field RN RN 400mcg/Heparin 1500units) 10:28:52 Versed I.V. 1 mg Jose Jose for sedation Savanna Corrales RN RN 10:29:02 Fentanyl I.V. 50 mcg Jose Jose for sedation Savanna Corrales RN RN 10:36:45 Radial Cocktail I.A. 1 Jose Jairon for (Verapomil syringe Savanna Eldridge MD vasodilation 2mg/Nitro RN 400mcg/Heparin 1500units) 10:39:38 Heparin Bolus I.V. 4000 Jose Jairon for units Savanna Eldridge MD anticoagulation health information coder Log Time Note 10:10:32 Tiffany Counts RT(R) sent for patient. Start room use. 10:10:36 Time tracking: Regular hours 10:10:40 Plan of Care:Hemodynamics will remain stable., Cardiac rhythm will remain stable., Comfort level will be maintained., Respiratory function will remain adequate., Patient/ family verbilizes understanding of procedure., Procedure tolerated without complication., Recovers from procedure without complications.. 10:18:29 Patient received from Pre/Post Procedure Room to CCL 1 Alert and oriented. Tansferred to table in Supine position. 10:18:30 Warm blankets applied, and lee hugger turned on for patient comfort. 10:18:31 Correct patient and procedure confirmed by team. 10:18:32 Signed procedure consent form obtained from patient. 10:18:33 ECG and BP/O2 sat monitors applied to patient. 10:18:34 Full Disclosure recording started 10:19:00 H&P Date Dictated: 02/27/2017 Within 30 days and on chart., H&P Addendum completed by physician on day of procedure. (MUST COMPLETE FOR ALL OUTPATIENTS). 10:19:03 Pre-procedure instructions explained to patient. 10:19:03 Pre-op teaching completed and patient verbalized understanding. 10:19:05 Family in waiting room. 10:24:04 Vital chart was started 10:26:45 0.9% NaCl 100 ml/hr I.V. was administered by Jose Corrales RN; Per physician; 10:26:49 Baseline sample Acquired. 10:26:51 Rhythm: sinus bradycardia 10:26:55 Patient NPO since Midnight. 10::58 Oxygen 2 l/min NC was administered by Jose Corrales RN; Per physician; 10:27:08 Patient allergic to Other allergyNiacin 10:27:10 Is the patient allergic to Iodine/contrast media? No. 10:27:12 Heparin Flush Bag (1000units/500ml NS) 2 bags added to field was administered by Jose Corrales RN; used for procedure; 10:27:13 Is patient on blood thinner?Yes 10:27:15 ACC The patient was administered the following blood thiners within the last 24 hours: ACCAspirin, ACCPlavix 10:27:17 Patient diabetic? Yes. 10:27:18 If diabetic: On Metformin? No 10:27:23 Previous problem with sedation/anesthesia? No ? 10:27:24 Lidocaine 2% 20ml vial added to field was administered by Jose Corrales RN; for local anesthetic; 10:27:24 Snore? Yes 10:27:25 Sleep apnea? Yes 10:27:26 Deviated septum? No 10:27:26 Opens mouth fully? Yes 10:27:27 Sticks out tongue? Yes 10:27:31 Airway obstruction? Yes COPD 10:27:33 Dentures? No ? 10:27:35 Pre procedure: right dorsailis pedis pulse 2+ Normal; easily identifiable; not easily obliterated 10:27:37 Modified Linus's test Ulnar < 7 seconds 10:27:39 Patient pain scale 0/10 ?. 10:27:43 Radial Cocktail (Verapomil 2mg/Nitro 400mcg/Heparin 1500units) 1 syringe added to field was administered by Jose Corrales RN; used for procedure; 10:27:43 IV patent on arrival in left hand with 0.9% NaCl at O. 10:27:47 Lab results completed and on chart. 10:27:51 Right Radial & Right Groin area was prepped with chlora-prep and draped in sterile fashion 10:27:52 Alarms reviewed by R. N. 10:27:52 Sharps counted by scrub and verified by R.N. 10:27:55 Use device set Radial Dx 10:27:56 Acist Syringe opened to sterile field. 10:27:56 Medline Cath Pack opened to sterile field. 10:27:57 Bag Decanter opened to sterile field. 10:27:57 Terumo 6Fr Slender Glidesheath opened to sterile field. 10:27:57 St Fantasma 260cm J .035 wire opened to sterile field. 10:27:58 Acist Hand Control opened to sterile field. 10:27:58 Acist Manifold opened to sterile field. 10:27:59 Tegaderm 4 x 4 opened to sterile field. 10:28:00 MBrace Wrist Support opened to sterile field. 10:28:23 Final Timeout: patient, procedure, and site verified with staff and physician. All members of the team are in agreement. 10:28: Right Radial site verified by team. 10:28:28 Physical assessment completed. ASA score P 2 - A patient with mild systemic disease as per Jairon Eldridge MD. 10:28:31 Sedation plan: IV Moderate Sedation Versed, Fentanyl 10:28:52 Versed 1 mg I.V. was administered by Jose Corrales RN; for sedation; 10:29:02 Fentanyl 50 mcg I.V. was administered by Jose Corrales RN; for sedation; 10:30:38 Zero performed for pressure channel P1 10:33:29 Procedure started. 10:33:35 Local anesthetic to right radial artery with Lidocaine 2% by Jairon Eldridge MD.INITIAL ACCESS ONLY 10:34:30 A 6 Fr Short sheath was inserted into the Right Radial artery 10:35:28 A Diagnostic Terumo 5Fr Franklin 110cm catheter was advanced over the wire and used for LV Angiography. 10:36:22 LV gram done using STAPLES 10:36:27 EF : 50 % 10:36:31 Injector settings: Ml/sec: 5, Volume: 15, 10:36:45 Radial Cocktail (Verapomil 2mg/Nitro 400mcg/Heparin 1500units) 1 syringe I.A. was administered by Jairon Eldridge MD; for vasodilation; 10:36:46 A Diagnostic Terumo 5Fr Franklin 110cm catheter was advanced over the wire and used for Left Coronary Angiography. 10:37:28 Douglas Whisper J 300cm 0.014 guide wire opened to sterile field. 10:37:29 GENELINK BasixCompak Inflation Kit opened to sterile field. 10:37:38 A Diagnostic Terumo 5Fr Franklin 110cm catheter was advanced over the wire and used for Right Coronary Angiography. 10:38:13 Catheter removed. 10:38:21 Medtronic Launcher 6Fr AR 1.0 SH guide catheter opened to sterile field. 10:39:38 Heparin Bolus 4000 units I.V. was administered by Jairon Eldridge MD; for anticoagulation; 10:39:54 6 Fr AR 1.0 SH guide catheter was inserted over the wire 10:41:53 Whisper wire advanced. 10:42:44 Inflation Number: 1 A Bagdad OTW 2.5 x 18 stent was prepped and advanced across the Mid RCA. The stent was deployed at 13 KATERYNA for 0:08 (min:sec). 10:43:03 Inflation number: 2 The stent balloon was then re-inflated across the Mid RCA to 15 KATERYNA for 0:06 (min:sec). 10:43:20 Stent catheter was removed intact over wire. 10:43:20 Wire removed. 10:43:21 Guide catheter removed. 10:43:34 Sheath removed intact; hemostasis achieved with Mechanical Compression to the Right Radial artery. 10:43:36 Procedure ended.(Physican Out) 10:43:48 Fluoroscopy time 02.80 minutes. 10:43:53 Fluoroscopy dose: 642 mGy 10:43:53 Flurop Dose total: 642 10:43:57 Contrast amount:Isovue 300 71ml. 10:43:59 Sharps counted by scrub and verified by R.N. 10:44:04 TR band inflated with 12cc of air. 10:44:05 Insertion/operative site no bleeding no hematoma. 10:44:18 Post right radial artery:stable, clean and dry 10:44:20 Post Procedure Pulses reassessed and unchanged 10:44:22 Post-procedure physical assessment completed. ASA score P 2 - A patient with mild systemic disease as per Jairon Eldridge MD. 10:44:25 Post procedure rhythm: unchanged. 10:44:28 Estimated blood loss: 10 ml 10:44:30 Post procedure instruction explained to patient.Patient verbalizes understanding. 10:44:30 Patient needs reinforcement of post procedure teaching. 10:44:46 Procedure type changed to Cath procedure, Diagnostic procedure, LHC, LHC w/Coronaries, PCI procedure, Coronary Stent Initial, Miscellaneous Procedures, Moderate Sedation up to 15 minutes 10:44:50 Procedure Complication : No complications 10:45:07 See physician's report for complete and final results. 10:45:24 Terumo TR Band Standard opened to sterile field. 10:45:56 Procedure and supply charges have been captured, reviewed, submitted and are correct. 10:48:16 Vital chart was stopped 10:48:19 Report given to Pre/Post Procedure Room. 10:48:22 Patient transfered to Pre/Post Procedure Room with Stretcher. 10:48:25 Procedure ended. 10:48:25 Full Disclosure recording stopped 10:48:30 End room use (Document Last) Intervention Summary Intervention Notes Time ActionType Lesion and Equipment Action# Pressure Duration Attributes Used 10:42:44 Place stent Mid RCA Bagdad OTW 1 13 00:08 2.5 x 18 stent 10:43:03 Reinflate Mid RCA Minesh OTW 2 15 00:06 stent 2.5 x 18 balloon stent Device Usage Item Name Manufacture Quantity Catalog Hospital Part Current Minimal Lot# / Number Charge Number Stock Stock Serial# Code Acist Acist 1 56439 788125 285280 309037 20 Syringe Medical Systems Inc Medline Cardinal 1 [id number] 129656 75900 280932 5 Cath Pack Health Bag Microtek 1 2002S 017482 50593 655066 5 kingsky. Terumo 6Fr Terumo 1 [id number] 581192 494098 490321 [address] Fant[address] St Fantasma 1 549039 776250 971400 035938 30 260cm J .035 wire Acist Hand Acist 1 53950 742548 966518 429686 5 Control Medical Systems Inc Acist Acist 1 80793 593579 292908 598671 5 Manifold Medical Systems Inc Tegaderm 4 3M 1 1626W 731224 278282 090019 5 x 4 MBrace Advanced 1 140-0250-00 410441 97199 146033 5 Wrist Vascular Support Dynamics Diagnostic Terumo 1 61-3743 557778 310643 533683 5 Terumo 5Fr Franklin 110cm catheter Douglas Douglas 1 [id number] 387816 678263 752623 5 Whisper J Vascular 300cm 0.014 guide wire Merit Merit 1 [id number] 794804 754700 826742 15 [facility] Inflation Kit Medtronic Medtronic 1 [id number] 567003 82253 021410 1 Launcher 6Fr AR 1.0 SH guide catheter Minesh OTW Medtronic 1 [id number] 802976 01477 710956 5 [id number] 2.5 x 18 stent Terumo TR Terumo 1 [id number] 400174 081145 677240 40 Band Standard Signature Audit Sandy Stage Time Signature Unsigned Intra-Procedure 03/04/2017 Tiffany 10:48:45 AM Counts RT(R) Signatures Monitor : Tiffany Signature : Counts RT Date : Time : [address] [address]
[2017-03-04] MEDS ORDERED: LEVOXYL50 MCG PO (09:12)
[2017-03-04] MEDS ORDERED: CARDURA2 MG PO (09:13)
[2017-03-04] MEDS ORDERED: PEPCID AC20 MG PO (09:13)
[2017-03-04 09:23] VITALS: BP 175/78; BMI 27.3
[2017-03-04 09:28] LABS: BASOPHILS 0.2 % (0-2); EOSINOPHILS 2.9 % (0-7); HEMATOCRIT 42.6 % (42.0-54.0); HEMOGLOBIN 14.4 g/dL (13.5-17.5); IMMATURE GRANULOCYTES 0.4 % (0-5); LYMPHOCYTES 20.2 % (15-50); MCHC 33.8 g/dL (31.0-37.0); MCV 97.5 fL (80.0-100.0); MEAN PLATELET VOLUME 10.1 fL (7.4-10.4); NEUTROPHILS 65.3 % (40-80); PLATELET COUNT 118 10x3/uL (130-400); RBC 4.37 10x6/uL (4.20-6.10); RDW 13.4 % (11.5-14.5); WBC 4.6 10x3/uL (4.8-10.8)
[2017-03-04 09:45] LABS: ANION GAP 10.4 mmol/L (8-16); CALCIUM 9.1 mg/dL (8.5-10.1); CARBON DIOXIDE 25.8 mmol/L (21.0-32.0); CREATININE - SERUM 1.1 mg/dL (0.6-1.3); POTASSIUM - SERUM 4.2 mmol/L (3.5-5.1)
--- NOTE | 2017-03-04 11:05 | NUR ---
1105 NO BLEEDING OR HEMATOMA NOTED TO RIGHT WRIST, PT DENIES ANY C/O CHEST PAIN, IS SLEEPING AND AWAKENS EASILY.
--- NOTE | 2017-03-04 11:06 | NUR ---
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 PT IS DROWSY, AWAKENS EASILY. DENIES ANY C/O PAIN OR NAUSEA. SINUS BRADYCARDIA WITH RATE OF 56. TR BAND CDI TO RIGHT WRIST, NO BLEEDING OR HEMATOMA NOTED. FINGERS WARM, CAP REFILL IS BRISK. WRIST IMMOBILZER IN PLACE. RR EVEN AND UNLABORED ON O2 AT 2LPM VIA NC CALL LIGHT IN REACH, FAMILY AT BEDSIDE.
--- NOTE | 2017-03-04 11:20 | NUR ---
1120 PT DENIES ANY C/O. TR BAND CDI. REQUESTED URINAL AND VOIDED APPROX 600 CC CLEAR YELLOW URINE.
--- NOTE | 2017-03-04 11:46 | NUR ---
1145 PT SLEEPING, AWAKENS EASILY. TR BAND IS CDI, PT DENIES ANY C/O. SINUS BRADYCARDIA ON MONITOR. NO FAMILY AT BEDSIDE, CALL LIGHT IS IN REACH.
--- NOTE | 2017-03-04 12:04 | NUR ---
1200 PT DENIES ANY C/O. TR BAND CDI. CALL LIGHT IN REACH.
--- NOTE | 2017-03-04 12:42 | NUR ---
1240 PT SLEEPING, AWAKENS EASILY TO VERBAL STIMULI. DENIES ANY C/O. TR BAND IS CDI WITH NO BLEEDING OR HEMATOMA NOTED. CALL LIGHT IS IN REACH, NO FAMILY AT BEDSIDE. VSS
--- NOTE | 2017-03-04 13:00 | NUR ---
1300 PT SLEEPING, AWAKENS EASILY. AT BEDSIDE. PT DENIES ANY C/O AT THIS TIME. RR EVEN AND UNLABORED, NO BLEEDING OR HEMATOMA NOTED AT TR BAND. FINGERS WARM, CAP REFILL IS BRISK. CALL LIGHT IN REACH.
--- NOTE | 2017-03-04 13:47 | NUR ---
1345 3 CC OF AIR REMOVED FROM TR BAND WITH NO BLEEDING OR HEMATOMA NOTED .
--- NOTE | 2017-03-04 14:41 | NUR ---
1430 ALL AIR REMOVED FROM TR BAND, NO BLEEDING OR HEMATOMA NOTED.
--- NOTE | 2017-03-04 14:42 | NUR ---
1440 IV HAS BEEN DC'D WITH CATH INTACT. CATH SITE REMAINS FREE FROM BLEEDING OR HEMATOMA. DC INSTRUCTIONS REVIEWED WITH PT AND WHO VERBALIZE UNDERSTANDING. PT DRESSING FOR DC TO HOME.
--- NOTE | 2017-03-04 15:11 | NUR ---
1500 PT HAS VOIDED QS. 2X2 AND TEGADERM ARE CDI TO RIGHT WRIST. PT DENIES ANY C/O. PT ESCORTED TO PRIVATE AUTO VIA WC BY STAFF WITH DRIVING HIM HOME.
--- NOTE | 2017-03-08 13:09 | OP ---
PATIENT NAME: JESSE BAILEY MEDICAL RECORD: [id number] :35 LOCATION:D.CAT ADMISSION DATE: SURGEON: EDNA REYNOLDS MD DATE OF OPERATION: 03/04/2017 PROCEDURES: 1. PTCA stent to RCA. 2. Left heart catheterization. 3. Selective coronary angiography. 4. Left ventriculogram. INDICATION: Angina and coronary artery disease. PROCEDURE IN DETAIL: After informed consent was obtained and after detailed explanation of risks, benefits as well as alternative therapies, the patient elected to proceed with angiogram and angioplasty. The right radial area was prepped and draped in normal sterile fashion. The right radial artery was cannulated via modified Seldinger technique with placement of 6-Bur[place] sheath. All catheters exchanged through this sheath. FINDINGS: Left ventriculogram was performed in standard 30-degree STAPLES view, reveals good cardiac wall motion throughout all segments. Overall ejection fraction estimated at 50%. SELECTIVE CORONARY ANGIOGRAPHY: 1. Left main showed no significant angiographic disease. 2. Left anterior descending has previously placed stents, these are widely patent. No significant restenosis. No significant disease elsewise throughout the LAD or its branches. 3. Left circumflex has mild irregularities, but no flow-limiting stenosis. 4. The right coronary has previously placed stents. Just distal to the previously placed stents, there is 80+ percent stenosis. PTCA STENT OF THE RCA: Stent used is a 2.5 x 18 mm [place]. Result was 0% residual stenosis. OVERALL IMPRESSION: Successful percutaneous transluminal coronary angioplasty stent of the right coronary artery going from 80% initial stenosis to 0% residual stenosis. TRANSINT:[id number] Voice Confirmation ID: [id number] DOCUMENT ID: [id number] EDNA REYNOLDS MD at 1309 CC: [id number] DICTATION DATE: 03/04/17 1047 AUTOMOTIVE PROFESSIONAL: 03/04/17 1145 DEP CLI 03/04/[address] [address]
== END 2017-03-04 15:00 | disposition home or self-care (01) ==
LOC: D.CATH 08:40
PROVIDERS: Internal Medicine Interventional Cardiology
DX: I25.119 Atherosclerotic heart disease of native coronary artery with unspecified angina pectoris (principal); R06.02 Shortness of breath; I10 Essential (primary) hypertension; I50.9 Heart failure, unspecified; E78.5 Hyperlipidemia, unspecified; Z01.812 Encounter for preprocedural laboratory examination
CPT/HCPCS: 93458; C9600

== ENCOUNTER → 2017-12-25 09:30 | Outpatient (CLI) | payer MEDICARE, OTHER ==
--- NOTE | ~2017-12-25 | EC ---
PATIENT:JESSE BAILEY DATE OF SERVICE: 12/25/17 SEX: M MEDICAL RECORD: [id number] DATE OF : 35 LOCATION:[facility] AGE OF PATIENT: 82 ADMISSION DATE: 12/25/17 REFERRING PHYSICIAN: INTERPRETING PHYSICIAN: EDNA ELDRIDGE MD ECHOCARDIOGRAM REPORT ECHO CHARGES 4 ECHO COMPLETE Date: 12/25 CLINICAL DIAGNOSIS: LOSS OF VISION RIGHT EYE ECHOCARDIOGRAPHIC MEASUREMENTS (adult normal given) AC root (d.<3.7cm) 3.6 cm LV Septum d (<1.2 cm> 1.2 cm Valve Excursion 1.1 cm LV Septum (systole) 1.9 cm Left Atria (s.<4.0cm> 3.9 cm LVPW d(<1.2cm) 1.5 cm RV (d.<2.3cm) 3.3 cm LVPW (sytole) 2.1 cm LV diastole(<5.6CM) 4.3 cm MV E-F(>70mm/sec) cm LV systole 2.1 cm LVOT Diameter 1.8 cm MV exc.(>10mm) cm Est.ejection fraction (50-75%) % DOPPLER: LVIT cm/sec A 70.0 cm/sec E 59.0 cm/sec LA cm/sec RVSP 29.0 mmHg LVOT 107 cm/sec AOP1/2T m/s Asc. Ao 188 cm/sec RVOT 65.0 cm/sec RA cm/sec PA 79.0 cm/sec AV Gradient Peak 14.1 mmHg AV Mean 8.3 mmHg AV Area 1.2 cm MV Gradient Peak 3.1 mmHg MV Mean 0.83 mmHg MV Area cm COMMENTS: Living Supervisor: Chayo DE LA FUENTEOE Industrial Ecologist: 1 Dr. Eldridge TAPE# PACS Pericardial Effusion N DATE OF SERVICE: 12/25/2017 ECHOCARDIOGRAM WITH BUBBLE STUDY FINDINGS: 1. Left ventricular chamber size is within normal limits. Left ventricular systolic function is normal. Overall ejection fraction is estimated at 55% to 60%. 2. Left atrium, right atrium, and right ventricle chamber sizes are within normal limit. ECHOCARDIOGRAM REPORT [id number] JESSE BAILEY 3. Valvular structures: Aortic valve demonstrates calcific sclerosis but no aortic stenosis. The remaining valvular structures have normal structure and motion. 4. Doppler interrogation reveals mild aortic insufficiency and trace tricuspid regurgitation. No other valvular insufficiency or stenosis. Pulmonary systolic pressure is normal, estimated at 29 mmHg. 5. Bubble study was performed. There was no evidence of uqfw-xs-prgqv or bpdbm-hf-gyjz shunt. 6. No cardiac source of neurologic emboli. TRANSINT:[id number] Voice Confirmation ID: [id number] DOCUMENT ID: [id number] EDNA ELDRIDGE MD at 1325 CC: [id number] DICTATION DATE: 12/26/17 1241 GROUNDS MANAGER: 12/26/17 1309 DEP CLI 12/25/17 [facility] [address] [place] [address]
[~2017-12-25 09:30] MED LIST changes: +CARDURA2 MG PO; +LEVOXYL50 MCG PO; +PEPCID AC20 MG PO
== END | disposition home or self-care (01) ==
LOC: D.ECHO 09:30
DX: H54.61 Unqualified visual loss, right eye, normal vision left eye (principal)

== ENCOUNTER → 2018-01-03 11:00 | Outpatient (CLI) | payer MEDICARE, OTHER | END | disposition home or self-care (01) | LOC: D.MRI 01-02 16:28 | DX: H53.121 Transient visual loss, right eye (principal) ==

== ENCOUNTER → 2018-09-04 09:07 | Outpatient (CLI) | payer MEDICARE, OTHER | END | disposition home or self-care (01) | LOC: D.CT 09:07 | PROVIDERS: ATTEND Family Medicine | DX: R19.00 Intra-abdominal and pelvic swelling, mass and lump, unspecified site (principal) ==

== ENCOUNTER 2018-12-11 07:30 | Emergency (ER) | payer MEDICARE, OTHER ==
[~2018-12-11] VITALS: Ht 175.3 cm; Wt 84.1 kg
[2018-12-11 07:34] VITALS: Ht 175.3 cm; Wt 84.1 kg
[2018-12-11 07:57] LABS: BASOPHILS 0.2 % (0-2); EOSINOPHILS 1.5 % (0-7); HEMATOCRIT 38.4 % (42.0-54.0); HEMOGLOBIN 12.9 g/dL (13.5-17.5); IMMATURE GRANULOCYTES 0.3 % (0-5); LYMPHOCYTES 15.3 % (15-50); MCH 31.8 pg (26.0-34.0); MCHC 33.6 g/dL (31.0-37.0); MCV 94.6 fL (80.0-100.0); MEAN PLATELET VOLUME 9.8 fL (7.4-10.4); MONOCYTES 11.5 % (2-11); NEUTROPHILS 71.2 % (40-80); PLATELET COUNT 105 10x3/uL (130-400); RBC 4.06 10x6/uL (4.20-6.10); RDW 13.2 % (11.5-14.5); WBC 6.6 10x3/uL (4.8-10.8)
[2018-12-11 08:13] LABS: ALBUMIN 3.1 g/dL (3.4-5.0); ALKALINE PHOSPHATASE 83 U/L (46-116); ALT (SGPT) 27 U/L (10-68); BILIRUBIN - TOTAL 1.38 mg/dL (0.2-1.3); CALC OSMOLALITY 278 mosm/kg (275-300); CALCIUM 8.9 mg/dL (8.5-10.1); CARBON DIOXIDE 23.3 mmol/L (21.0-32.0); CHLORIDE - SERUM 105 mmol/L (98-107); CREATININE - SERUM 1.5 mg/dL (0.6-1.3); GLUCOSE 127 mg/dL (74-106); POTASSIUM - SERUM 4.2 mmol/L (3.5-5.1); SODIUM 136 mmol/L (136-145); UREA NITROGEN 27 mg/dL (7-18); eGFR NON AFRICAN AMERICAN 47 mL/min (90-120)
[2018-12-11 08:24] LABS: CKMB 0.1 U/L (0.0-3.6); CREATINE KINASE 26 UL (21-232); TROPONIN-I < 0.017 ng/mL (0.000-0.060)
[2018-12-11 08:27] LABS: APTT 26.8 SECONDS (22.8-39.4); INR 1.09 (0.85-1.17); PROTIME 13.6 SECONDS (11.6-15.0)
[2018-12-11] MEDS ORDERED: NAPROXEN250 MG PO (12:04)
[2018-12-11] MEDS ORDERED: FLUTICASONE PRO16 GM NASAL (12:04)
[2018-12-11] MEDS ORDERED: AUGMENTIN 875-11 TAB PO (12:04)
[2018-12-11 12:23] VITALS: BP 133/64
== END 2018-12-11 12:20 | disposition home or self-care (01) ==
LOC: D.ER 07:30
PROVIDERS: Family Medicine
DX: J01.90 Acute sinusitis, unspecified (principal); R07.89 Other chest pain; J44.9 Chronic obstructive pulmonary disease, unspecified; I10 Essential (primary) hypertension

== ENCOUNTER 2019-07-25 14:06 | Inpatient (IN) | payer MEDICARE, OTHER ==
[~2019-07-25] VITALS: Ht 175.3 cm; Wt 79.5 kg
--- NOTE | ~2019-07-25 | HEMODYNAMI ---
PATIENT:JESSE BAILEY MEDICAL RECORD: [id number] : 35 LOCATION:[facility] D.[facility]5 ADMISSION DATE: 07/25/19 Generatedon:07/28/20198:17 Patient name: JESSE BAILEY Patient #: [id number] : 1935 Date of study: 07/28/2019 Page: Of Hemodynamic Procedure Report Patient Data Patient Demographics Procedure consent was obtained First Name: JESSE Gender: Male Last Name: LINUS : 1935 Middle Initial: LEAH Age: 84 year(s) Patient #: [id number] Race: SSN: [id number] Additional ID: [id number] Contact details [address]: [address] [place] [address] [place] State: [place] City: [place] Zip code: [address] Past Medical History Allergies Allergen Reaction Date Comments Reported Other 06/18/2016 NIACIN, MILK allergy Other 06/19/2016 niacin,milk allergy Other 03/04/2017 Niacin allergy Other 07/28/2019 NICIAN,CODEINE,HYDROCODONE allergy Admission Admission Data Admission Date: 07/25/2019 Admission Time: 16:13 Arrival Date: 07/28/2019 Arrival Time: 0:00 Room #: [facility] Insurance Payor: Medicare HIC #: [id number] Height (in.): 68.9 BSA: 1.95 (m2) Height (cm.): 175 BMI: 25.8 (kg/m2) Weight (lbs.): 174.17 Weight (kg.): 79 Lab Results Lab Result Date: 07/28/2019 Lab Result Time: 0:00 Biochemistry Name Units Result Min Max BUN mg/dl 30 --(----)-* 7 18 Creatinine mg/dl 1.3 --(---*)-- 0.6 1.3 eGFR ml/min 56 *-(----)-- 90 120 NONAFRICAN CBC Name Units Result Min Max Hematocrit % 39 *-(----)-- 42 54 Hemoglobin g/dl 13.1 -*(----)-- 13.5 17.5 Procedure Procedure Types Cath Procedure Diagnostic Procedure [facility] w/Coronaries Sedation Charges Moderate Sedation up to 15 minutes PCI Procedure Coronary Stent Coronary Stent Initial Hemochron ACT Test Procedure Description Procedure Date Procedure Date: 07/28/2019 Procedure Start Time: 7:55 Procedure End Time: 8:15 Procedure Staff Name Function Jairon Eldridge MD Performing Physician Elissa Caballero RT Monitor Lenny Donnelly RN Nurse Amanda Farmer RT Scrub Procedure Data Cath Procedure Fluoroscopy Diagnostic fluoroscopy Total fluoroscopy Time: 4.8 time: 4.8 min min Diagnostic fluoroscopy Total fluoroscopy dose: dose: 357.52 mGy 357.52 mGy Contrast Material Contrast Material Type Amount (ml) Isovue 300 95 Entry Location Entry Primary Successful Side Size Upsize Upsize Entry Closure Huffman ccessful Closure Location (Fr) 1 (Fr) 2 (Fr) Remarks Device Remarks Radial Right 6 Fr Mechanical artery Short Compression Estimated blood loss: 10 ml Diagnostic catheters Device Type Used For End Catheter Placement DIAGNOSTIC [place] 110cm 5 Procedure Fr catheter ([id number]) Procedure Complications No complications Procedure Medications Medication Administration Route Dosage Oxygen etCO2 Nasal cannula 3 l/min Lidocaine 2% added to field 20 Heparin Flush Bag added to field 2 bags (1000units/500ml NS) 0.9% NaCl I.V. 100 ml/hr Radial Cocktail I.A. 1 syringe (Verapamil 2mg/Nitro 400mcg/Heparin 1500units) Versed I.V. 1 mg Fentanyl I.V. 50 mcg Heparin Bolus I.V. 4000 units Hemodynamics Rest BSA: 1.95 (m2) HGB: 13.1 (g/dl) O2 Consumption: Estimated: 226.25 (ml/min) O2 Co nsumption indexed: Estimated:116.03 (ml/min/m) Heart Rate: 76 (bpm) Snapshots Pre Cath Intra NCS Post Cath Vital Signs Time Heart Resp SPO2 etCO2 NIBP (mmHg) Rhythm Pain Sedation Rate (ipm) (%) (mmHg) Status Level (bpm) 7:48:51 71 18 90 17.1 148/97(133) NSR (Missing) 10(A) 7:53:56 69 14 92 19.3 139/79(106) NSR (Missing) 10(A) 7:58:16 73 13 92 0 111/54(72) NSR (Missing) 10(A) 8:02:28 61 13 93 0 104/57(82) NSR (Missing) 9(A) 8:06:38 74 13 93 0 114/58(81) NSR (Missing) 9(A) 8:10:50 73 15 92 0 125/67(100) NSR (Missing) 10(A) 8:15:06 77 14 90 0 123/63(100) NSR (Missing) 10(A) Medications Time Medication Route Dose Verified Delivered Reason Note s Effectiveness by by 7:53:11 Oxygen etCO2 3 l/min Jairon Galvez used for Nasal Chente Donnelly RN procedure cannula 7:53:19 Lidocaine 2% added 20ml Jairon De La O for local to vial Chetne Eldridge MD anesthetic field 7:53:24 Heparin Flush added 2 bags Jairon De La O used for Bag to Chente Eldridge MD procedure (1000units/500ml field NS) 7:53:35 0.9% NaCl I.V. 100 Jairon Galvez Per physician ml/hr Chente Donnelly RN 7:55:15 Versed I.V. 1 mg Jairon Galvez for sedation Chente Donnelly RN 7:55:21 Fentanyl I.V. 50 mcg Jairon Galvez for sedation Chente Donnelly RN 7:57:08 Radial Cocktail I.A. 1 Jairon De La O for (Verapamil syringe Chente Eldridge MD vasodilation 2mg/Nitro 400mcg/Heparin 1500units) 8:03:04 Heparin Bolus I.V. 4000 Jairon Galvez for VERI FIED units Chente Donnelly RN anticoagulation WITH DR ELDRIDGE Procedure Log Time Note 7:17:38 Informed consent obtained and on chart 7:18:22 Lab Result : eGFR NONAFRICAN 56 ml/min 7:18:22 Lab Result : Creatinine 1.3 mg/dl 7:18:22 Lab Result : BUN 30 mg/dl 7:18:22 Lab Result : Hematocrit 39 % 7:18:22 Lab Result : Hemoglobin 13.1 g/dl 7:19:09 Arrival Date: 07/28/2019 12:00:00 AM 7:19:35 Insurance Payor : Medicare 7:19:42 Patient Height : 68.9 inches 7:19:49 Patient Weight : 174.17 lbs 7:24:10 Patient allergic to Other allergyNICIAN,CODEINE,HYDROCODONE 7:24:22 Risk of Mortality: 1.0 7:24:26 Risk of blood transfusion: 0.1 7:24:30 Risk of JOHN: 2.5 7:24:35 Lab results completed and on chart. 7:28:56 Procedure Status Urgent Heart Cath (IP). 7:29:40 Lenny Donnelly RN sent for patient. Start room use. 7::42 Time tracking: Regular hours (M-F 7:00 - 5:00) 7:29:49 Plan of Care:Hemodynamics will remain stable., Cardiac rhythm will remain stable., Comfort level will be maintained., Respiratory function will remain adequate., Patient/ family verbilizes understanding of procedure., Procedure tolerated without complication., Recovers from procedure without complications.. 7:30:03 ACC Patient presents with Stable Angina CCS Anginal Class 3--Marked limitation of physical activity, angina occurs with ordinary activity.. 7:31:25 Diagnostic Cath Status : Urgent 7:40:11 Patient received from Med II to CCL 3 Alert and oriented. Tansferred to table in Supine position. 7:40:14 Warm blankets applied, and lee hugger turned on for patient comfort. 7:40:15 Correct patient and procedure confirmed by team. 7:40:16 ECG and BP/O2 sat monitors applied to patient. 7:47:50 Vital chart was started 7:47:51 Baseline sample Acquired. 7:47:55 Rhythm: sinus rhythm 7:47:57 Full Disclosure recording started 7:47:58 7:48:04 H&P Date Dictated: 07/28/2019 Within 30 days and on chart.. 7:48:05 Pre-procedure instructions explained to patient. 7:48:06 Pre-op teaching completed and patient verbalized understanding. 7:48:12 Family in patients room. 7:48:15 Patient NPO since Midnight. 7:48:26 Is the patient allergic to Iodine/contrast media? No. 7:48:28 Was the patient premedicated? Yes 7:48:31 Is patient on blood thinner?Yes 7:48:35 ACC The patient was administered the following blood thiners within the last 24 hours: ACCPlavix 7:48:38 Patient diabetic? Yes. 7:48:42 If diabetic: On Metformin? No 7:48:44 ----Pre-sedation anethsthesia assessment.---- 7:48:48 Previous problem with sedation/anesthesia? No ? 7:48:50 Snore? Yes 7:48:57 Sleep apnea? No 7:49:00 Deviated septum? No 7:49:03 Opens mouth fully? Yes 7:49:05 Sticks out tongue? Yes 7:49:23 Airway obstruction? Yes POSS PNEUMONIA\ 7:49:31 Dentures? No ? 7:49:48 Pre procedure: right dorsailis pedis pulse 1+ Palpable, but thready & weak; easily obliterated 7:49:56 Modified Linus's test Ulnar > 7 seconds. 7:50:16 IV patent on arrival in left forearm with 0.9% NaCl at KVO. 7:50:28 Stress Test: no; N/A ? 7:50:34 Right Radial & Right Groin area was prepped with chlora-prep and draped in sterile fashion 7:50:36 Alarms reviewed by R. N. 7:50:37 Sharps counted by scrub and verified by R.N. 7:51:36 Use device set Radial Dx or PCI 7:51:38 ACIST Syringe (85236) opened to sterile field. 7:51:39 Medline Cath Pack ([id number]) opened to sterile field. 7:51:39 Bag Decanter () opened to sterile field. 7:51:40 ACIST Hand Control (35377) opened to sterile field. 7:51:41 ACIST Manifold (96111) opened to sterile field. 7:51:42 Tegaderm 4 x 4 (1626W) opened to sterile field. 7:51:43 MBrace Wrist Support ([id number]) opened to sterile field. 7:51:45 EMERALD Guide Wire (405-133) opened to sterile field. 7:51:46 SHEATH 6FR RAIN (7481391) opened to sterile field. 7:53:11 Oxygen 3 l/min etCO2 Nasal cannula was administered by eLnny Donnelly RN; used for procedure; Verbal order read back and verified. 7:53:19 Lidocaine 2% 20ml vial added to field was administered by Jairon Eldridge MD; for local anesthetic; Verbal order read back and verified. 7:53:24 Heparin Flush Bag (1000units/500ml NS) 2 bags added to field was administered by Jairon Eldridge MD; used for procedure; Verbal order read back and verified. 7:53:35 0.9% NaCl 100 ml/hr I.V. was administered by Lenny Donnelly RN; Per physician; Verbal order read back and verified. 7:54:05 Physician arrived 7:54:06 --------ALL STOP TIME OUT------ 7:54:07 Final Timeout: patient, procedure, and site verified with staff and physician. All members of the team are in agreement. 7:54:10 Right Radial & Right Groin site verified by team. 7:54:17 Fire Safety Assessment: A--An alcohol-based skin anteseptic being used preoperatively., C--Open oxygen or nitrous oxide is being used., D--An ESU, laser, or fiber-optic light is being used. 7:54:22 Physical assessment completed. ASA score P 2 - A patient with mild systemic disease as per Jairon Eldridge MD. 7:54:27 3a) 45-59 Moderately reduced kidney function. 7:54:33 Maximum allowable contrast dose (3.7 X eGFR X 0.75)156 ml. 7:55:15 Versed 1 mg I.V. was administered by Lenny Donnelly RN; for sedation; Verbal order read back and verified. 7:55:19 Sedation plan: IV Moderate Sedation Medication:Versed, Fentanyl 7:55:21 Fentanyl 50 mcg I.V. was administered by Lenny Donnelly RN; for sedation; Verbal order read back and verified. 7:55:35 Procedure started. 7:55:43 Local anesthetic to right radial artery with Lidocaine 2% by Jairon Eldridge MD.INITIAL ACCESS ONLY 7:56:11 A 6 Fr Short sheath was inserted into the Right Radial artery 7:56:29 Zero performed for pressure channel P1 7:57:07 Zero performed for pressure channel P1 7:57:08 Radial Cocktail (Verapamil 2mg/Nitro 400mcg/Heparin 1500units) 1 syringe I.A. was administered by Jairon Eldridge MD; for vasodilation; Verbal order read back and verified. 7:57:16 Zero performed for pressure channel P1 7:57:27 A DIAGNOSTIC [place] 110cm 5 Fr catheter ([id number]) was advanced over the wire and used for Procedure. 7:58:25 EF : 60 % 7:58:28 LV gram done using STAPLES 7:58:34 Injector settings: Ml/sec: 5, Volume: 15, 7:58:40 LCA angiography performed. 7:58:45 Injector settings: Ml/sec: 3, Volume: 6, 8:00:16 RCA angiography performed. 8:00:20 Catheter removed. 8:00:22 Proceeding to intervention. 8:00:25 INFLATOR Merit BasixCompak ([id number]) opened to sterile field. 8:00:39 GUIDE 6FR HS I SH catheter ([id number]) opened to sterile field. 8:01:31 CHOICE PT Extra Support 182cm wire ([id number]) opened to sterile field. 8:01:45 Pre PCI Site: [place] mRCA has 99% stenosis. 8:01:49 ACC Pre-intervention MERCEDES Flow is 3. 8:01:57 6 Fr HS 1 guide catheter was inserted over the wire 8:02:06 CHOICE PT 180 wire advanced. 8:03:04 Heparin Bolus 4000 units I.V. was administered by Lenny Donnelly RN; for anticoagulation; VERIFIED WITH DR ELDRIDGE Verbal order read back and verified. 8:03:20 Wire advanced across lesion. 8:04:05 Inflate balloon Inflation number: 1 A Mozec Rx 2.5 x 20 balloon was prepped and advanced across the Mid RCA , then inflated to 11 KATERYNA for 0:00 (min:sec) . 8:04:34 Inflation number: 2 The Mozec Rx 2.5 x 20 balloon was reinflated across the Mid RCA , to 13 KATERYNA for 0:00 (min:sec) . 8:04:39 Inflation number: 3 The Mozec Rx 2.5 x 20 balloon was reinflated across the Mid RCA , to 15 KATERYNA for 0:00 (min:sec) . 8:05:14 Balloon removed over the wire. 8:06:49 Place stent Inflation Number: 4 A BRO RX 2.5 x 38 stent ([id number]) was prepped and advanced across the Mid RCA . The stent was deployed at 13 KATERYNA for 0:00 (min:sec) . 8:07:02 Stent catheter was removed intact over wire. 8:08:13 Place stent Inflation Number: 5 A BRO RX 2.5 x 26 stent ([id number]) was prepped and advanced across the Mid RCA . The stent was deployed at 17 KATERYNA for 0:00 (min:sec) . 8:09:03 TR BAND Standard ([id number]) opened to sterile field. 8:09:10 Stent catheter was removed intact over wire. 8:09:11 Wire removed. 8:09:12 Guide catheter removed. 8:09:21 Procedure ended.(Physican Out) 8:09:30 Sheath removed intact; hemostasis achieved with Mechanical Compression to the Right Radial artery. 8:09:44 Post PCI Site: [place] mRCA has 0% stenosis. 8:09:49 ACC Post-intervention MERCEDES Flow is 3. 8:10:05 Contrast amount:Isovue 300 95ml. 8:10:15 Fluoroscopy time 04.80 minutes. 8:10:25 Flurop Dose total: 357.52 8:10:25 Fluoroscopy dose: 357.52 mGy 8:10:34 Dose Area Product 2151.08 mGy/cm. 8:10:37 Maximum allowable dose exceeded? No. 8:10:38 Sharps counted by scrub and verified by R.N. 8:10:42 [place] band inflated with 12cc of air. 8:10:44 Insertion/operative site no bleeding no hematoma. 8:10:51 Post right radial artery:stable 8:10:54 Post Procedure Pulses reassessed and unchanged 8:10:58 Post-procedure physical assessment completed. ASA score P 2 - A patient with mild systemic disease as per Jairon Eldridge MD. 8:11:02 Post procedure rhythm: unchanged. 8:11:07 Estimated blood loss: 10 ml 8:11:10 Post procedure instruction explained to patient.Patient verbalizes understanding. 8:11:11 Patient needs reinforcement of post procedure teaching. 8:13:18 ACT drawn and resulted at 286 seconds. (normal therapeutic range 180-240 seconds). 8:14:00 Procedure type changed to Cath procedure, Diagnostic procedure, LHC, [facility] w/Coronaries, Sedation Charges, Moderate Sedation up to 15 minutes, PCI procedure, Coronary Stent, Coronary Stent Initial, Hemochron ACT Test 8:14:02 Procedure and supply charges have been captured, reviewed, submitted and are correct. 8:15:02 Procedure Complication : No complications 8:15:06 Vital chart was stopped 8:15:08 [facility] Findings: MVD- PCI performed (see procedure note) 8:15:12 Operative report dictated upon procedure completion. 8:15:13 See physician's report for complete and final results. 8:15:16 Report given to Med II. 8:15:21 Patient transfered to Med II with Bed. 8:15:24 Procedure ended. 8:15:24 Full Disclosure recording stopped 8:15:47 ACC-PCI Only Patient was given prescriptions, or instructed by Jairon Eldridge MD to start/continue the following medications upon discharge: Plavix 8:15:49 End room use (Document Last) Intervention Summary Intervention Notes Time ActionType Lesion and Equipment Used Action# Pressure Duration Attributes 8:04:05 Inflate Mid RCA Mozec Rx 2.5 x 1 5 00:00 balloon 20 balloon 8:04:34 Reinflate Mid RCA Mozec Rx 2.5 x 2 13 00:00 balloon 20 balloon 8:04:39 Reinflate Mid RCA Mozec Rx 2.5 x 3 15 00:00 balloon 20 balloon 8:06:49 Place stent Mid RCA BRO RX 2.5 x 4 13 00:00 38 stent ([id number]) 8:08:13 Place stent Mid RCA BRO RX 2.5 x 5 17 00:00 26 stent ([id number]) Device Usage Item Name Manufacture Quantity Catalog Number Hospital Part Current M inimal Lot# / Charge Number Stock Stock Serial# Code ACIST Syringe Acist 1 54350 534610 525245 882362 2 0 (69663) Medical Systems Inc Medline Cath Medline 1 [id number] 849782 36321 651750 5 Pack ([id number]) Bag Decanter Microtek 1 898866 82290 345107 5 (2002S) Medical Inc. ACIST Hand Acist 1 43655 713400 701806 815945 5 Control Medical (59019) Systems Inc ACIST Manifold Acist 1 55368 518297 154702 050123 5 (93093) Medical Systems Inc Tegaderm 4 x 4 3M 1 1626W 733812 698188 657714 5 (1626W) MBrace Wrist Advanced 1 140-0250-00 857034 36259 566450 5 Support Vascular ([id number]) Dynamics EMERALD Guide Cardinal 1 502-455 334328 968237 836282 5 Wire (502-455) Health SHEATH 6FR Cardinal 1 3312315 615113 2679753 153917 5 RAIN (2336186) Health DIAGNOSTIC Terumo 1 405013 415090 092489 514562 5 [place] 110cm 5 Fr catheter (775257) INFLATOR Merit Merit 1 XL7928 614342 555067 231787 1 5 [employer] Medical (VV2360) GUIDE 6FR HS I Medtronic 1 [id number] 399492 55160 627534 1 SH catheter ([id number]) CHOICE PT [place] 1 [id number] 300559 533943 638373 5 Extra Support Scientific 182cm wire ([id number]) Mozec Rx 2.5 x Cardinal 1 [id number] 935251 91005 677489 5 UMOD48 20 balloon Health BRO RX 2.5 x Medtronic 1 [id number] 633669 2657172 090938 5 [id number] 38 stent ([id number]) BRO RX 2.5 x Medtronic 1 [id number] 439661 4082511 913021 5 [id number] 26 stent ([id number]) TR BAND Terumo 1 [id number] 633059 980713 301839 4 0 Standard ([id number]) Signature Audit [place] Stage Time Signature Unsigned Intra-Procedure 07/28/2019 Elissa 8:16:22 AM Federico RT(R) (CV) Intra-Procedure 07/28/2019 Lenny Donnelly RN 8:16:50 AM Intra-Procedure 07/28/2019 Jairon Eldridge 8:17:10 AM [facility] [address] [place] [address]
[~2019-07-25 14:06] MED LIST changes: +AUGMENTIN 875-11 TAB PO; +FLUTICASONE PRO16 GM NASAL; +NAPROXEN250 MG PO
[2019-07-25 15:11] LABS: BASOPHILS 0.1 % (0-2); EOSINOPHILS 0.6 % (0-7); HEMATOCRIT 44.5 % (42.0-54.0); HEMOGLOBIN 14.9 g/dL (13.5-17.5); IMMATURE GRANULOCYTES 0.9 % (0-5); LYMPHOCYTES 24.6 % (15-50); MCHC 33.5 g/dL (31.0-37.0); MCV 95.5 fL (80.0-100.0); MEAN PLATELET VOLUME 9.9 fL (7.4-10.4); MONOCYTES 7.2 % (2-11); NEUTROPHILS 66.6 % (40-80); PLATELET COUNT 115 10x3/uL (130-400); RBC 4.66 10x6/uL (4.20-6.10); RDW 13.3 % (11.5-14.5)
[2019-07-25 15:18] LABS: APTT 43.8 SECONDS (22.8-39.4); INR 1.25 (0.85-1.17); PROTIME 15.6 SECONDS (11.6-15.0)
[2019-07-25 15:35] LABS: CALC OSMOLALITY 287 mosm/kg (275-300); CALCIUM 8.7 mg/dL (8.5-10.1); CARBON DIOXIDE 21.5 mmol/L (21.0-32.0); CHLORIDE - SERUM 106 mmol/L (98-107); CREATININE - SERUM 1.6 mg/dL (0.6-1.3); GLUCOSE 121 mg/dL (74-106); POTASSIUM - SERUM 3.7 mmol/L (3.5-5.1); SODIUM 139 mmol/L (136-145); UREA NITROGEN 39 mg/dL (7-18); eGFR NON AFRICAN AMERICAN 44 mL/min (90-120)
[2019-07-25 15:59] LABS: ALBUMIN 2.8 g/dL (3.4-5.0); ALKALINE PHOSPHATASE 82 U/L (30-120); ALT (SGPT) 75 U/L (10-68); BILIRUBIN - TOTAL 0.44 mg/dL (0.2-1.3); CKMB 0.7 U/L (0.0-3.6); CREATINE KINASE 64 UL (21-232); PRO BNP 647 pg/mL (0-450); PROTEIN - SERUM 6.8 g/dL (6.4-8.2)
[2019-07-25 16:04] LABS: TROPONIN-I 0.061 ng/mL (0.000-0.060)
[2019-07-25 18:30] VITALS: BP 135/68; BMI 26.6
--- NOTE | 2019-07-25 20:00 | NUR ---
REPORT RECIEVED AND INITIAL ROUNDS COMPLETED. SEE SHIFT ASSESSMENT. NO DISTRESS. RESTING IN BED.
[2019-07-25 21:30] VITALS: BP 127/59
[2019-07-26 00:30] VITALS: BP 172/85
--- NOTE | 2019-07-26 04:00 | NUR ---
RESTING IN BED WITH EYES CLOSED. RESPS EVEN/NONLABORED. NO DISTRESS. CPOC.
[2019-07-26 04:30] VITALS: BP 168/69
[2019-07-26 04:58] LABS: BASOPHILS 0.2 % (0-2); EOSINOPHILS 0.2 % (0-7); HEMATOCRIT 40.9 % (42.0-54.0); HEMOGLOBIN 13.6 g/dL (13.5-17.5); IMMATURE GRANULOCYTES 1.1 % (0-5); LYMPHOCYTES 13.2 % (15-50); MCH 31.2 pg (26.0-34.0); MCHC 33.3 g/dL (31.0-37.0); MCV 93.8 fL (80.0-100.0); MEAN PLATELET VOLUME 10.2 fL (7.4-10.4); MONOCYTES 1.6 % (2-11); NEUTROPHILS 83.7 % (40-80); PLATELET COUNT 111 10x3/uL (130-400); RBC 4.36 10x6/uL (4.20-6.10); RDW 13.1 % (11.5-14.5)
[2019-07-26 05:00] LABS: WBC 5.5 10x3/uL (4.8-10.8)
[2019-07-26 05:34] LABS: ANION GAP 11.9 mmol/L (8-16); CALCIUM 8.1 mg/dL (8.5-10.1); CARBON DIOXIDE 22.6 mmol/L (21.0-32.0); CREATININE - SERUM 1.2 mg/dL (0.6-1.3)
[2019-07-26 05:35] LABS: POTASSIUM - SERUM 4.5 mmol/L (3.5-5.1)
[2019-07-26 08:00] VITALS: BP 125/56
[2019-07-26 10:49] VITALS: Ht 175.3 cm; Wt 79.5 kg
[2019-07-26 16:00] VITALS: BP 126/59
--- NOTE | 2019-07-26 20:00 | NUR ---
REPORT RECIEVED AND INITIAL ROUNDS COMPLETED. PT RESTING IN BED. STATES LONG DAY, FEELS POORLY. INSTRUCTED ON NEED FOR SPUTUM AND COLLECTION CUP PROVIDED. CAF/69 PER TELEMETRY. SALINE LOCK TO LEFT WRIST. ROOM AIR, STATES BREATHING TREATMENT MADE HIM FEEL BETTER. DENIES NEED FOR O2. CPOC.
[2019-07-26 20:30] VITALS: BP 152/53
[2019-07-27 00:30] VITALS: BP 187/84
--- NOTE | 2019-07-27 02:29 | NUR ---
CALLED INTO PATIENTS ROOM WHERE HE IS IN PAIN, CLUTCHING HIS UPPER RIGHT ABDOMEN/LOWER RIB CAGE AREA. SAYING HE FEELS LIKE HE IS HAVING AN ABCESS, THAT HE HAS AN EXTENSIVE GI HISTORY. PT VERY AFRAID/FRIGHTENED THAT SOMETHING BAD IS HAPPENING TO HIM. PALPATED ABDOMEN, PT FLINCHES WITH PAIN WHEN TOUCH IN RIGHT UPPER QUADRANT AND ALSO AREA IS VERY FIRM TO TOUCH. PAGE TO DR DELUCA @ 0135 AND AGAIN AT 0155. RETURN CALL FROM DR DELUCA AT 0200 AND REPORTED ABOVE. NEW ORDERS RECIEVED. ADMINISTERED IV ATIVAN 1MG AT THIS TIME. RT WAS ABOUT TO DO A XYLOCAINE BREATHING TREATMENT AND PT SLOWLY BEGINNING TO RELAX WITH NURSE SITTING BESIDE HIM AND ENCOURAGING HIM TO LET THE MEDICATION WORK, TO RELAX AND TRY TO SLEEP. ATIVAN WORKING WELL ON PATIENT. DECISION MADE TO HAVE RT NOT RESTIMULATE PATIENT WITH THE XYLOCAINE TREATMENT AT THIS TIME. LIGHTS DIMMED. DOOR OPEN FOR CLOSE SUPERVISION. MONITOR. SR WITH 1DEGREE HEART BLOCK NOTED. SR UP X 2, CALL LIGHT IN REACH.
--- NOTE | 2019-07-27 04:15 | NUR ---
PT AWAKENED IN A STATE OF CONFUSION AND TRYING TO CLIMB OVER THE BED RAILS. WOULD NOT FOLLOW DIRECTIONS. WAS NOT ORIENTED TO PERSON/PLACE/TIME OR SITUATION. ABLE TO GET HIM BACK TO BED WHILE NURSE STAYED IN ROOM AND MONITORED HIM. CPOC.
[2019-07-27 04:30] VITALS: BP 162/67
--- NOTE | 2019-07-27 06:45 | NUR ---
WENT TO ROOM AND FOUND PATIENT'S DAUGHTER ATTEMPTING TO GET HIM UP AND TAKE HIM TO THE BATHROOM. PT WAS VERY CONFUSED AND GAIT UNSTEADY. ASSISTED HER TO GET HIM BACK TO BED, CLEANED UP FROM BEING INCONTINENT OF URINE. EXPLAINED TO DAUGHTER ALL THAT OCCURRED LAST NIGHT WITH THE RESULTING CALL TO DR DELUCA AND THE ATIVAN THAT THE PATIENT RECIEVED. DAUGHTER STATES PT DOES HAVE EPISODES OF BEING VERY ANXIOUS/FRIGHTENED WHEN IT COMES TO HIS MEDICAL STATUS. PB MAT PLACED ON BED WHILE HE SAT IN CHAIR AND THEN PATIENT ASSISTED BACK TO BED WHERE HE PROMPTLY RETURNED TO SLEEP. SR UP X 3, CALL LIGHT IN REACH. FALL PRECAUTIONS IN PLACE. DOOR TO ROOM OPEN FOR QUICK SUPERVISION. REPORT TO ONCOMING NURSE.
--- NOTE | 2019-07-27 09:22 | NUR ---
DR. REYNOLDS NOTIFIED OF HR 42. NEW ORDERS GIVEN. BETAPACE DCD.
[2019-07-27 10:26] VITALS: BP 178/64
--- NOTE | 2019-07-27 11:54 | CN ---
PATIENT NAME:JESSE BAILEY MEDICAL RECORD: [id number] : 35 LOCATION:D.M2 D.2115 ADMIT DATE: 07/25/19 ACCOUNT: [id number] CONSULTING PHYSICIAN: EDNA REYNOLDS MD REFERRING PHYSICIAN: RAHUL DELUCA MD DATE OF CONSULTATION: 07/26/2019 DIAGNOSES: 1. Non-Q-wave myocardial infarction. 2. Coronary artery disease. 3. Previous multivessel percutaneous transluminal coronary angioplasty stent. 4. Shortness of breath. 5. Pneumonia. 6. Hypertension. 7. Hyperlipidemia. 8. Paroxysmal atrial fibrillation. HISTORY OF PRESENT ILLNESS: Mr. Bailey presents with shortness of breath and chest pain. His troponin is positive for myocardial infarction. His last cardiac stents, number of years ago. He has had multivessel PTCA stent. His chest pain is a classic anginal discomfort with a dull aching pressure sensation across the anterior chest as well. He has developed shortness of breath, cough and sputum production. He is being treated for pneumonia. He continues to have episodes of chest discomfort. His EKG is with no acute ST-T abnormalities. He did have an episode of atrial fibrillation. He is now back in sinus rhythm. He was started on sotalol and Eliquis. PHYSICAL EXAMINATION: CONSTITUTIONAL/GENERAL APPEARANCE: Well nourished, well developed, appears stated age. EYES: Lids and conjunctivae noninjected. No discharge. No pallor. ENT: Lips within normal limit. No cyanosis. No pallor. NECK: Carotid arteries, bilateral normal upstroke. No bruits. No thrills. No jugular venous pressure or distention. CERVICAL LYMPH NODES: Nontender. Nonenlarged. THYROID: Not enlarged. No nodules. CARDIOVASCULAR: Precordial exam, nondisplaced. No heaves or pericardial thrills. Rate and rhythm, regular. Heart sounds, normal S1, normal S2. No S3, no gallop, no rub. Systolic murmur, not heard. Diastolic murmur, not heard. RESPIRATORY: Respiratory effort, unlabored. Normal curvature. No thoracic deformity. No chest wall tenderness. Percussion, resonant. Auscultation, clear. No wheezes, no rales, no rhonchi. ABDOMEN: Soft, nondistended, nontender. No abdominal pain, no vomiting and normal appetite. MUSCULOSKELETAL: No joint tenderness, normal gait, normal tone. SKIN: Warm and dry. OVERALL IMPRESSION: Non-Q-wave myocardial infarction, most likely he has recurrent hemodynamically significant coronary artery disease. We will discontinue the Eliquis as he is back in sinus rhythm. Load him with Plavix. Continue treatment for the pneumonia. Proceed with coronary angiography in the near future. TRANSINT:[id number] Voice Confirmation ID: [id number] DOCUMENT ID: [id number] CONSULT REPORT [id number] JESSE BAILEY JEFFREY MD at 1154 CC: [id number] DICTATION DATE: 07/26/19 1052 SHADE BANDER: 07/26/19 1134 ADM IN [place] [id number] [place] [address]
--- NOTE | 2019-07-27 14:18 | NUR ---
MENTAL STATUS IMPROVING SINCE ATIVAN GIVEN. FAMILY AT BS. CONSENTS FOR LHC SIGNED BY . WILL CONT. PLAN OF CARE.
[2019-07-27 14:55] VITALS: BP 173/72
--- NOTE | 2019-07-27 19:13 | NUR ---
RECEIVED BEDSIDE REPORT. PATIENT IS ALERT AND ORIENTED, RESTING COMFORTABLY IN BED. RESPIRATIONS ARE EVEN AND UNLABORED. NO S/S OF DISTRESS. NO C/O PAIN. NEEDS MET. CALL LIGHT WITHIN REACH. WILL CPOC.
[2019-07-27 20:28] VITALS: BP 139/64
--- NOTE | 2019-07-27 23:51 | NUR ---
PATIENT RESTING COMFORTABLY IN BED. RESPIRATIONS ARE EVEN AND UNLABORED. NO S/S OF DISTRESS. CALL LIGHT WITHIN REACH. DAUGHTER AT BEDSIDE . CALL LIGHT WITHIN REACH. WILL CPOC.
[2019-07-28 00:26] VITALS: BP 125/66
[2019-07-28 05:54] VITALS: BP 167/65
[2019-07-28 06:50] LABS: BASOPHILS 0.1 % (0-2); EOSINOPHILS 0 % (0-7); HEMOGLOBIN 13.1 g/dL (13.5-17.5); IMMATURE GRANULOCYTES 0.4 % (0-5); LYMPHOCYTES 6.5 % (15-50); MCH 30.8 pg (26.0-34.0); MCHC 33.6 g/dL (31.0-37.0); MCV 91.5 fL (80.0-100.0); MEAN PLATELET VOLUME 10.6 fL (7.4-10.4); MONOCYTES 2.9 % (2-11); NEUTROPHILS 90.1 % (40-80); PLATELET COUNT 117 10x3/uL (130-400); RBC 4.26 10x6/uL (4.20-6.10); RDW 13.1 % (11.5-14.5); WBC 9.5 10x3/uL (4.8-10.8)
[2019-07-28 07:01] LABS: ANION GAP 11.8 mmol/L (8-16); CALCIUM 8.2 mg/dL (8.5-10.1); CARBON DIOXIDE 23.2 mmol/L (21.0-32.0); CREATININE - SERUM 1.3 mg/dL (0.6-1.3)
--- NOTE | 2019-07-28 07:38 | NUR ---
PRE-OPS GIVEN. 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
--- NOTE | 2019-07-28 08:35 | NUR ---
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 VS WNL. RIGHT WRIST STABLE WITH Z-BZND INTACT. WILL MONITOR.
[2019-07-28 11:50] VITALS: BP 134/64
--- NOTE | 2019-07-28 11:55 | NUR ---
UNABLE TO RELASE AIR FROM Z BAND DUE TO BLEEDING. WILL CONT. TO MONITOR.
[2019-07-28 12:09] LABS: IMMUNOGLOBULIN A 364 mg/dL (61-437); IMMUNOGLOBULIN G 1027 mg/dL (700-1600)
[2019-07-28 16:04] VITALS: BP 139/63
--- NOTE | 2019-07-28 19:28 | NUR ---
RECEIVED BEDSIDE REPORT. PATIENT IS RESTING COMFORTABLY IN BED. RESPIRATIONS ARE EVEN AND UNLABORED. NO S/S OF DISTRESS. NO C/O PAIN. CALL LIGHT WITHIN REACH. WILL CPOC.
--- NOTE | 2019-07-28 21:00 | NUR ---
PATIENT GIVEN CONTAINER FOR SPUTUM SAMPLE.
[2019-07-28 21:03] VITALS: BP 117/49
--- NOTE | 2019-07-28 23:50 | NUR ---
PATIENT RESTING COMFORTABLY IN BED. RESPIRATIONS ARE EVEN AND UNLABORED. NO S/S OF DISTRESS. NO C/O PAIN. CALL LIGHT WITHIN REACH. WILL CPOC.
[2019-07-29 01:51] VITALS: BP 173/69
[2019-07-29 05:57] LABS: ANION GAP 10.9 mmol/L (8-16); CALCIUM 7.8 mg/dL (8.5-10.1); CARBON DIOXIDE 24.4 mmol/L (21.0-32.0); CREATININE - SERUM 1.1 mg/dL (0.6-1.3); POTASSIUM - SERUM 4.3 mmol/L (3.5-5.1)
[2019-07-29 06:34] VITALS: BP 134/71
[2019-07-29 08:33] VITALS: BP 184/74
[2019-07-29 11:37] VITALS: BP 116/51
[2019-07-29 15:39] VITALS: BP 121/58
--- NOTE | 2019-07-29 17:03 | NUR ---
IV STARTED TO RIGHT WRIST WITH 22 GAUGE CATH X 2 STICKS AND FLUSHED WITH NS. LINE IS PATENT.
[2019-07-29 20:00] VITALS: BP 138/69
[2019-07-30] VITALS: BP 164/71
[2019-07-30 04:00] VITALS: BP 153/65
--- NOTE | 2019-07-30 10:21 | NUR ---
LEAVING FOR X-RAY BY W/C.
--- NOTE | 2019-07-30 10:32 | NUR ---
AMBULATING WITH PT ASSIST.
[2019-07-30 10:59] VITALS: BP 161/62
[2019-07-30 13:52] VITALS: BP 118/62
[2019-07-30] MEDS ORDERED: DICLOFENAC SODI50 MG PO (14:10)
[2019-07-30] MEDS ORDERED: XANAX0.25 MG PO (14:10)
[2019-07-30] MEDS ORDERED: SINGULAIR10 MG PO (14:11)
[2019-07-30] MEDS ORDERED: TYLENOL W/CODEI1 TAB PO (14:11)
[2019-07-30] MEDS ORDERED: TESSALON PERLE100 MG PO (14:12)
[2019-07-30] MEDS ORDERED: PLAVIX75 MG PO (14:12)
[2019-07-30] MEDS ORDERED: MUCINEX DM ER1 EAC1 PO (14:13)
[2019-07-30] MEDS ORDERED: PREDNISONE10 MG PO (14:17)
[2019-07-30] MEDS ORDERED: BAYER CHEWABLE81 MG PO (14:20)
--- NOTE | 2019-07-30 14:55 | NUR ---
CALLED IN PTS MEDICATIONS TO [facility]. D/C PTS R.WRIST PIV WITH CATHETER TIP FULLY INTACT. REMOVED TELEMETRY AND RETURNED TO [facility]. DISCHARGE TEACHING PROVIDED AND PAPERS SIGNED. PT VERBALIZED UNDERSTANDING AND DENIES ANY QUESTIONS OR CONCERNS. ALL BELONGINGS COLLECTED AND SENT WITH . HERE FOR TRANSPORTATION. WILL ESCORT PT DOWN AT THIS TIME.
--- NOTE | 2019-07-30 16:48 | EC ---
PATIENT:JESSE BAILEY DATE OF SERVICE: 07/25/19 SEX: M MEDICAL RECORD: [id number] DATE OF : 35 LOCATION:D.M2 D.211 AGE OF PATIENT: 84 ADMISSION DATE: 07/25/19 REFERRING PHYSICIAN: INTERPRETING PHYSICIAN: EDNA ELDRIDGE MD ECHOCARDIOGRAM REPORT ECHO CHARGES 4 ECHO COMPLETE Date: 07/26/19 CLINICAL DIAGNOSIS: NJ ECHOCARDIOGRAPHIC MEASUREMENTS (adult normal given) AC root (d.<3.7cm) 3.1 cm LV Septum d (<1.2 cm> 1.5 cm Valve Excursion 1.0 cm LV Septum (systole) 2.0 cm Left Atria (s.<4.0cm> 4.4 cm LVPW d(<1.2cm) 1.4 cm RV (d.<2.3cm) 3.4 cm LVPW (sytole) 2.2 cm LV diastole(<5.6CM) 4.9 cm MV E-F(>70mm/sec) cm LV systole 1.9 cm LVOT Diameter 1.7 cm MV exc.(>10mm) cm Est.ejection fraction (50-75%) % DOPPLER: LVIT cm/sec A 72.0 cm/sec E 55.0 cm/sec LA cm/sec RVSP 24.0 mmHg LVOT 101 cm/sec AOP1/2T m/s Asc. Ao 214 cm/sec RVOT 60.0 cm/sec RA cm/sec PA 76.0 cm/sec AV Gradient Peak 18.3 mmHg AV Mean 10.4 mmHg AV Area 1.0 cm MV Gradient Peak 3.1 mmHg MV Mean 1.2 mmHg MV Area cm COMMENTS: Switchboard Manager: 1 TOÑO DE LA FUENTEOE Trial Consultant: 1 Dr. Eldridge TAPE# PACS Pericardial Effusion N DATE OF SERVICE: FINDINGS: 1. Left ventricular chamber size is within normal limits. Left ventricular systolic function is normal at 55% to 60%. 2. Left atrium is enlarged at 4.4 cm. Right atrium and right ventricular chamber sizes are as well mildly dilated. 3. Valvular structures: Aortic valve demonstrates mild calcific aortic stenosis, valve area calculates to 1.0 cm-squared. There is a gradient of 18 mm across the valve. The remaining valvular structures have normal structure and ECHOCARDIOGRAM REPORT [id number] JESSE BAILEY motion. 4. Doppler interrogation elsewise reveals trace aortic insufficiency, trace tricuspid regurgitation, no other valvular insufficiency or stenosis. Pulmonary systolic pressure is normal, estimated at 24 mmHg. 5. No evidence of pericardial effusion or left ventricular thrombus. TRANSINT:[id number] Voice Confirmation ID: [id number] DOCUMENT ID: [id number] EDNA ELDRIDGE MD at 1648 CC: [id number] DICTATION DATE: 07/27/19 1340 CORRECTIONAL FACILITY NURSE: 07/27/19 1420 DIS IN 07/30/19 [facility] [address] [place] [address]
--- NOTE | 2019-07-30 16:48 | OP ---
PATIENT NAME: JESSE BAILEY MEDICAL RECORD: [id number] :35 LOCATION:D.M2 D.2115 ADMISSION DATE:07/25/19 SURGEON: EDNA REYNOLDS MD DATE OF OPERATION: 07/28/2019 DATE OF SERVICE: 07/28/2019 PROCEDURES: 1. PTCA stent RCA. 2. Left heart catheterization. 3. Selective coronary angiography. 4. Left ventriculogram. INDICATION: Non-Q-wave myocardial infarction. DESCRIPTION OF PROCEDURE IN DETAIL: After informed consent was obtained and after detailed description of risks, benefits as well as alternative therapies, the patient elected to proceed with angiogram and angioplasty. The right radial area was prepped and draped in normal sterile fashion. Right radial artery was cannulated via modified Seldinger technique with placement of 6-Upper Sorbian sheath. All catheters exchanged through this sheath. FINDINGS: Left ventriculogram was performed in standard 30-degree STAPLES view, reveals good cardiac wall motion, ejection fraction 55%. SELECTIVE CORONARY ANGIOGRAPHY: 1. Left main is with no significant angiographic disease. 2. Left anterior descending has moderate irregularities, but no flow-limiting stenosis. 3. The left circumflex has moderate irregularities, but no flow-limiting stenosis. 4. The right coronary has previously placed stents with 80% stenosis proximally, 99% stenosis in the mid vessel. FACE WORKER STENT OF THE RCA: Stents used were 2.5 x 38 and 2.5 x 26, both Reese stents. Result was 0% residual stenosis. OVERALL IMPRESSION: Successful percutaneous transluminal coronary angioplasty stent of the right coronary artery going from 99% initial stenosis to 0% residual. TRANSINT:[id number] Voice Confirmation ID: [id number] DOCUMENT ID: [id number] EDNA REYNOLDS MD at 1648 CC: [id number] DICTATION DATE: 07/28/19 0812 DIRECTOR OF GRADUATE ADMISSIONS: 07/28/19 1014 DIS IN 07/30/19 [place] [id number] [place] [id number]
[2019-07-30 22:07] LABS: IMMUNOGLOBULIN E 242 IU/mL (6-495)
[2019-08-01 06:09] LABS: IGG SUBCLASS 1 689 mg/dL (248-810); IGG SUBCLASS 2 177 mg/dL (130-555); IGG SUBCLASS 3 39 mg/dL (15-102); IGG SUBCLASS 4 30 mg/dL (2-96); IGGS - IGG SERUM 1095 mg/dL (700-1600)
== END 2019-07-30 15:45 | disposition home or self-care (01) | DRG 246 ==
LOC: D.ER 14:06 → D.M2 16:13
PROVIDERS: Family Medicine; Internal Medicine Interventional Cardiology; Internal Medicine Pulmonary Disease; ADMIT Family Medicine; ATTEND Family Medicine
PROC: B2111ZZ Fluoroscopy of Multiple Coronary Arteries using Low Osmolar Contrast (ICD-10-PCS; 2019-07-28)
PROC: B2151ZZ Fluoroscopy of Left Heart using Low Osmolar Contrast (ICD-10-PCS; 2019-07-28)
PROC: 027035Z Dilation of Coronary Artery, One Artery with Two Drug-eluting Intraluminal Devices, Percutaneous Approach (ICD-10-PCS; principal; 2019-07-28 07:30)
PROC: 4A023N7 Measurement of Cardiac Sampling and Pressure, Left Heart, Percutaneous Approach (ICD-10-PCS; 2019-07-28 07:30)
DX: I21.A1 Myocardial infarction type 2 (principal); J18.9 Pneumonia, unspecified organism; J44.1 Chronic obstructive pulmonary disease with (acute) exacerbation; J44.0 Chronic obstructive pulmonary disease with (acute) lower respiratory infection; I51.3 Intracardiac thrombosis, not elsewhere classified; I10 Essential (primary) hypertension; J20.9 Acute bronchitis, unspecified; I48.0 Paroxysmal atrial fibrillation; I25.10 Atherosclerotic heart disease of native coronary artery without angina pectoris; D69.6 Thrombocytopenia, unspecified; E78.5 Hyperlipidemia, unspecified

== ENCOUNTER 2019-08-03 17:36 | Inpatient (IN) | payer MEDICARE, OTHER ==
[~2019-08-03] VITALS: Ht 175.3 cm; Wt 82.6 kg
--- NOTE | ~2019-08-03 | CN ---
PATIENT NAME:JESSE BAILEY MEDICAL RECORD: [id number] : 35 LOCATION:D.M2 D.2109 ADMIT DATE: 08/03/19 ACCOUNT: [id number] CONSULTING PHYSICIAN: EDNA REYNOLDS MD REFERRING PHYSICIAN: ISRA LOUIS MD DATE OF CONSULTATION: 08/05/2019 DIAGNOSES: 1. Right flank hematoma. 2. Coronary artery disease. 3. Recent percutaneous transluminal coronary angioplasty stent. 4. Recent non-Q-wave myocardial infarction. 5. Hypertension. 6. Hyperlipidemia. 7. Anemia. 8. Peripheral vascular disease. HISTORY OF PRESENT ILLNESS: This is a gentleman who presented last week with a non-Q-wave myocardial infarction, underwent PTCA stent, has been uneventful from a cardiac standpoint. Daughter and turned him over and found a right flank hematoma. He complains of pain with the hematoma as well as nausea and vomiting. This all just started yesterday. He did receive his Plavix and aspirin yesterday. His groin is stable and does not appear to have any enlargement or hematoma in the groin. PHYSICAL EXAMINATION: CONSTITUTIONAL/GENERAL APPEARANCE: Well nourished, well developed, appears stated age. EYES: Lids and conjunctivae noninjected. No discharge. No pallor. ENT: Lips within normal limit. No cyanosis. No pallor. NECK: Carotid arteries, bilateral normal upstroke. No bruits. No thrills. No jugular venous pressure or distention. CERVICAL LYMPH NODES: Nontender. Nonenlarged. THYROID: Not enlarged. No nodules. CARDIOVASCULAR: Precordial exam, nondisplaced. No heaves or pericardial thrills. Rate and rhythm, regular. Heart sounds, normal S1, normal S2. No S3, no gallop, no rub. Systolic murmur, not heard. Diastolic murmur, not heard. RESPIRATORY: Respiratory effort, unlabored. Normal curvature. No thoracic deformity. No chest wall tenderness. Percussion, resonant. Auscultation, clear. No wheezes, no rales, no rhonchi. ABDOMEN: Soft, nondistended, nontender. No abdominal pain, no vomiting and normal appetite. MUSCULOSKELETAL: No joint tenderness, normal gait, normal tone. SKIN: Warm and dry. OVERALL IMPRESSION: Right flank hematoma, most likely this is not a retroperitoneal bleed, most likely this is a subcutaneous hematoma. His hemoglobin went from 3-11.3 and has remained stable at the 11.3 range. He denies any fall or trauma to that area. It is difficult to say why he had a spontaneous right flank hematoma, but appears stable at this time and does not appear that any cardiac workup or treatment is necessary. Would definitely restart the Plavix. Hold the aspirin at this time. TRANSINT:[id number] Voice Confirmation ID: [id number] DOCUMENT ID: [id number] CONSULT REPORT [id number] JESSE BAILEY JEFFREY MD CC: [id number] DICTATION DATE: 08/05/19 0859 CELLULAR PLASTICS CUTTER: 08/05/19 [address] [facility] [address] [place] [address]
[~2019-08-03 17:36] MED LIST changes: +BAYER CHEWABLE81 MG PO; +DICLOFENAC SODI50 MG PO; +MUCINEX DM ER1 EAC1 PO; +PREDNISONE10 MG PO; +SINGULAIR10 MG PO; +TESSALON PERLE100 MG PO; -TRAVATAN Z2.5 ML EACH EYE; +TRAVATAN Z2.5 ML LEFT EYE; +TYLENOL W/CODEI1 TAB PO; +XANAX0.25 MG PO
[2019-08-03 18:58] LABS: BASOPHILS 0.1 % (0-2); EOSINOPHILS 0.3 % (0-7); HEMATOCRIT 40.7 % (42.0-54.0); HEMOGLOBIN 13.2 g/dL (13.5-17.5); IMMATURE GRANULOCYTES 1.5 % (0-5); LYMPHOCYTES 7.8 % (15-50); MCH 31.7 pg (26.0-34.0); MCHC 32.4 g/dL (31.0-37.0); MCV 97.6 fL (80.0-100.0); MEAN PLATELET VOLUME 11.3 fL (7.4-10.4); MONOCYTES 6.9 % (2-11); NEUTROPHILS 83.4 % (40-80); RBC 4.17 10x6/uL (4.20-6.10); RDW 14.5 % (11.5-14.5); WBC 11.5 10x3/uL (4.8-10.8)
[2019-08-03 19:10] LABS: PLATELET COUNT 80 10x3/uL (130-400)
[2019-08-03 19:13] LABS: ANION GAP 12.8 mmol/L (8-16); CALCIUM 8.2 mg/dL (8.5-10.1); CARBON DIOXIDE 20.8 mmol/L (21.0-32.0); CREATININE - SERUM 1.1 mg/dL (0.6-1.3); POTASSIUM - SERUM 4.6 mmol/L (3.5-5.1)
[2019-08-03 19:18] LABS: ALBUMIN 2.4 g/dL (3.4-5.0); BILIRUBIN - TOTAL 0.81 mg/dL (0.2-1.3); PROTEIN - SERUM 5.6 g/dL (6.4-8.2)
[2019-08-03 19:34] LABS: INR 0.95 (0.85-1.17); PROTIME 12.6 SECONDS (11.6-15.0)
[2019-08-03 19:41] LABS: PLATELET ESTIMATE DECREASED
[2019-08-03 19:50] LABS: BILIRUBIN NEGATIVE (NEGATIVE); GLUCOSE NEGATIVE (NEGATIVE); KETONE NEGATIVE (NEGATIVE); NITRITE NEGATIVE (NEGATIVE); SPECIFIC GRAVITY 1.025 (1.005-1.020); UROBILINOGEN NORMAL (NORMAL)
[2019-08-03 20:41] LABS: AMYLASE - SERUM 93 U/L (25-115); LIPASE 273 U/L (73-393)
[2019-08-04] VITALS (7 sets, daily range): BP systolic 113–152; BP diastolic 49–73; Ht 175.3 cm; Wt 82.6 kg
--- NOTE | 2019-08-04 00:26 | NUR ---
RECEIVED REPORT FROM BAUDILIO IN ER. ARRIVED TO FLOOR IN W/C WITH STAFF AND FAMILY AT HIS SIDE. ALERT AND ORIENTED X4. UP WITH ASSIST. C/O WEAKNESS AND HAS A LARGE HEMATOMA ON RIGHT FLANK AREA. BED ALARM IN PLACE WITH YELLOW GOWN AND YELLOW BRACLET. BED IN LOWEST POSITION AND ALL PERSONAL ITEMS IN REACH. REQUESTED JELLO. JELLO GIVEN AND CONSUMED 2 JELLOS AND APPLE JUICE. SPOUSE ANSWER MOST QUESTION D/T PT BEING VERY MINTO. SPOUSE STAED HIS HEARING AIDES WERE SENT TO LR TO BE REPAIRED AND HAS NOT RECIEVED THEM BACK YET. IV TO RT HAND WITH FLAGYL INFUSING AT THIS TIME. WILL START LEVAQUIN AFTER FLAGYL COMPLETED.
[2019-08-04 06:34] LABS: BASOPHILS 0.1 % (0-2); HEMATOCRIT 35.1 % (42.0-54.0); HEMOGLOBIN 11.6 g/dL (13.5-17.5); IMMATURE GRANULOCYTES 1.3 % (0-5); LYMPHOCYTES 13.8 % (15-50); MCH 31.3 pg (26.0-34.0); MEAN PLATELET VOLUME 10.7 fL (7.4-10.4); MONOCYTES 9.1 % (2-11); NEUTROPHILS 74.7 % (40-80); RBC 3.71 10x6/uL (4.20-6.10); RDW 14.3 % (11.5-14.5); WBC 8.9 10x3/uL (4.8-10.8)
[2019-08-04 06:37] LABS: MCV 94.6 fL (80.0-100.0); PLATELET COUNT 99 10x3/uL (130-400)
[2019-08-04 06:45] LABS: ALBUMIN 1.8 g/dL (3.4-5.0); ALKALINE PHOSPHATASE 54 U/L (30-120); BILIRUBIN - TOTAL 0.77 mg/dL (0.2-1.3); CALCIUM 7.2 mg/dL (8.5-10.1); CARBON DIOXIDE 23.7 mmol/L (21.0-32.0); CHLORIDE - SERUM 108 mmol/L (98-107); CREATININE - SERUM 0.9 mg/dL (0.6-1.3); GLUCOSE 82 mg/dL (74-106); PROTEIN - SERUM 4.6 g/dL (6.4-8.2); SODIUM 137 mmol/L (136-145); eGFR NON AFRICAN AMERICAN 85 mL/min (90-120)
[2019-08-04 06:47] LABS: CALC OSMOLALITY 275 mosm/kg (275-300); UREA NITROGEN 20 mg/dL (7-18)
[2019-08-04 06:48] LABS: ALT (SGPT) 46 U/L (10-68); POTASSIUM - SERUM 3.8 mmol/L (3.5-5.1)
--- NOTE | 2019-08-04 07:56 | NUR ---
STAND BY ASSIST TO BATHROOM AND BACK TO BED. BED ALARM TURNED ON. PT STATES HE HAS NO FURTHER NEEDS AT THIS TIME. BED LOW. CL IN REACH. WILL CONTINUE WITH POC.
[2019-08-04] MEDS ORDERED: PREDNISOLONE 110 ML RIGHT EYE (11:53)
[2019-08-04] MEDS ORDERED: TRUSOPT 2 % OPT10 ML LEFT EYE (11:55)
--- NOTE | 2019-08-04 12:08 | NUR ---
PT'S O2 SAT 90%. PT STTES HE FEELS "WOOSY." PLACED PT ON 2L O2 VIA NC AND WITHIN A MINUTE PT STATES HE "FEELS BETTER AND DOESN'T FEEL WOOSY ANYMORE." O2 SAT NOW AT 97%. WILL LEAVE PT ON O2. FAMILY AT BEDSIDE.
--- NOTE | 2019-08-04 12:30 | NUR ---
PT STATING HE FEELS DIZZY AGAIN. VS STABLE. BP 120/58. HR 61. 02 SAT 98% ON 2L O2. PAGED DR. SANDOVAL.
--- NOTE | 2019-08-04 12:33 | NUR ---
SPOKE WITH DR. SANDOVAL AND HE STATES TO ORDER A CT OF THE HEAD W/O CONTRAST STAT FOR DIZZINESS. I VERBALIZED UNDERSTANDING.
--- NOTE | 2019-08-04 13:56 | NUR ---
CT SCAN RESULTED. CALLED DR. SANDOVAL'S OFFICE AND STATED TO THEM THE STAT CT SCAN HAS RESULTED AND I WAS CALLING TO LET HIM KNOW. THEY TSATED THEY WOULD SEND HIM A MESSAGE. I VERBALIZED UNDERSTANDING.
--- NOTE | 2019-08-04 14:47 | NUR ---
HAVE NOT RECEIVED CALL BACK FROM DR. SANDOVAL'S OFFICE . CALLED HIS OFFICE AND SPOKE WITH HIS NURSE AGAIN AND SHE STATES SHE WILL "DRAG HIM OUT OF THIS ROOM AND HAVE HIM TALK TO YOU." I VERBALIZED UNDERSTANDING AND HIS NURSE HUNG UP THE PHONE.
--- NOTE | 2019-08-04 15:28 | NUR ---
SPOKE WITH DR. SANDOVAL AND HE STATES HE HAS LOOKED AT PT'S CT SCAN AND HE DOES NOT KNOW WHT IS CAUSING THIS AND TO TELL THE FAMILY HE WILL COME BY AFTER CLINIC AND SPEAK WITH THEM. SPOKE WITH FAMILY AND STATED THIS TO THEM AND THEY AND PT VERBALIZED UNDERSTANDING.
--- NOTE | 2019-08-04 15:28 | HP ---
PATIENT: JESSE BAILEY MEDICAL RECORD: [id number] ACCOUNT: [id number] LOCATION:[address] : 35 ADMISSION DATE: 08/03/19 PCP: ISRA MENJIVAR MD HISTORY AND PHYSICAL EXAMINATION DATE OF ADMISSION: 08/03/2019 CHIEF COMPLAINT: Generalized weakness times 2 days. HISTORY OF PRESENT ILLNESS: This is an 84-year-old white male followed by Dr. Menjivar. He was recently hospitalized with cough, congestion and chest pain, found to have non-Q-wave [place]. He received a couple of stents by Dr. Eldridge just a couple of weeks ago, he was feeling better after he was discharged, but for the last couple of days, he felt generalized weakness. He denies fever, chills, nausea or vomiting. His noticed on day of admission that he had a large bruise on his right flank area. The patient denies fall or trauma. He has never had anything like that before. He is on Plavix and aspirin since he got his last stents. He was brought to the ER on 08/03/2019 where his urine was normal, his white count was normal, platelets low at 80,000. Amylase and lipase were normal. Chest x-ray showed nothing acute. CT of the abdomen and pelvis showed colonic diverticulosis with minimal stranding adjacent to the sigmoid colon, which was consistent with a mild sigmoid diverticulitis. He is admitted. PAST MEDICAL HISTORY: Coronary artery disease, hypertension, asthma, osteoarthritis, COPD, prostate cancer, macular degeneration years ago. He had pancreatitis and was in the [facility] in 1987. He had to have a surgery to remove part of his colon. He had an ileostomy for years and before it got reversed. PAST SURGICAL HISTORY: Cholecystectomy, partial colectomy with ileostomy then reversed years later. He has had bilateral knee replacements, cataract repair, appendectomy, right rotator cuff repair. ALLERGIES: NIACIN. IT WAS REPORTED ALSO THAT HE HAS HAD REACTIONS TO KAREEN INHIBITORS, DEXILANT, PRAVASTATIN, PROCARDIA, UNIRETIC, AND SIMVASTATIN. HABITS: Former smoker, no alcohol or drugs. SOCIAL HISTORY: , retired. HOME MEDICATIONS: Reportedly, Pepcid 20 mg b.i.d., doxazosin 2 mg twice a day, levothyroxine 50 mcg once a day, amlodipine 5 mg once a day, Travatan eyedrops 0.004% OU at bedtime, nitroglycerin p.r.n., isosorbide nitrate once a day, Xanax 0.25 t.i.d. p.r.n. anxiety, Singulair 10 mg daily, Plavix 75 mg daily. REVIEW OF SYSTEMS: GENERAL: No major weight changes. HEENT: No particular sinus or allergy problems. RESPIRATORY: He has history of COPD. CARDIAC: See above history. He has got a total of 12 stents. GASTROINTESTINAL: See above history with pancreatitis and partial colectomy, ileostomy with reversal. GENITOURINARY: History of prostate cancer. MUSCULOSKELETAL: Has arthritic aches and pains. PSYCHIATRIC: Has some anxiety. HISTORY AND PHYSICAL [id number] JESSE BAILEY PHYSICAL EXAMINATION: VITAL SIGNS: Temperature 97.9, pulse 85, respirations 18, blood pressure 137/73, O2 sat 95%. GENERAL: He is awake and alert. He does not appear to be in acute distress. SKIN: Warm and dry. HEENT: Grossly within normal limits. NECK: Supple. HEART: Regular rate and rhythm. LUNGS: Clear. ABDOMEN: There is some tenderness to palpation in the left lower quadrant. No guarding or rebound. No mass in the right flank. He has an area of ecchymosis and mild tenderness there. EXTREMITIES: 1-2+ pitting edema. ASSESSMENT: 1. Diverticulitis. 2. Weakness. 3. Flank hematoma. PLAN: IV antibiotics. We will monitor his H&H as he is on blood thinners, but will need to keep him on those because of his recent stents. Other tests or procedures as warranted. TRANSINT:[id number] Voice Confirmation ID: [id number] DOCUMENT ID: [id number] KRISTI SANDOVAL MD at 1528 CC: [id number] DICTATION DATE: 08/04/19 0858 CATERING SERVICE MANAGER: 08/04/19 1047 ADM IN [place] [id number] [place] [address]
--- NOTE | 2019-08-04 17:00 | NUR ---
PT HAS VOMITED SEVERAL TIMES. ZOFRAN GIVEN AND NAUSEA SUBSIDED. RIGHT FLANK HEMATOMA HAS DOUBLED IN SIZE. CALLED AND SPOKE WITH DR. SANDOVAL AND HE STATES TO ORDER STAT CBC AND PT INR AND CONSULT DR. MAYNARD AND HE WILL CALL HIM PERSOANLLY. I VERBALIZED UNDERSTANDING. GAVE DR. LORI MONTERROSO NUMBER. CALLED LAB AND STATED LABS ARE ORDERED STAT.
[2019-08-04 17:31] LABS: BASOPHILS 0 % (0-2); EOSINOPHILS 1.2 % (0-7); HEMATOCRIT 36.3 % (42.0-54.0); HEMOGLOBIN 11.6 g/dL (13.5-17.5); LYMPHOCYTES 14.1 % (15-50); MCH 30.7 pg (26.0-34.0); MONOCYTES 8.4 % (2-11); NEUTROPHILS 75.3 % (40-80); PLATELET COUNT 81 10x3/uL (130-400); RBC 3.78 10x6/uL (4.20-6.10); RDW 14.6 % (11.5-14.5); WBC 7.4 10x3/uL (4.8-10.8)
--- NOTE | 2019-08-04 17:47 | NUR ---
DR. SANDOVAL STATED TO ME TO CANCEL DR. MAYNARD CONSULT BECAUSE HE IS NOT GOING TO DO ANYTHING. AND TO CONSULT DR. REYNOLDS AND HE HAS ALREADY SPOKEN WITH HIM. I VERBALIZED UNDERSTANDING.
[2019-08-04 18:00] LABS: INR 1.13 (0.85-1.17); PROTIME 14.4 SECONDS (11.6-15.0)
--- NOTE | 2019-08-04 18:38 | NUR ---
I have reviewed this patient and I concur with the Shift Assessment completed by the Licensed Practical Nurse today this shift.
--- NOTE | 2019-08-04 19:15 | NUR ---
REPORT RECEIVED, WILL CONTINUE POC. PATIENT IS AAOX4, ASSISTED PATIENT TO BATHROOM AND BACK TO BED. NO S/S OF DISTRESS OBSERVED, RR EVEN AND UNLABORED ON 2L O2 VIA NC. PIV TO RT HAND INFUSING NS @100ML/HR, PATENT, DRSG C/D/I. PATIENT DENIES NEEDS AT THIS TIME. CL IN REACH, BED LOCKED AND LOWERED. WILL CTM.
[2019-08-04 21:47] LABS: BASOPHILS 0 % (0-2); HEMOGLOBIN 12.4 g/dL (13.5-17.5); IMMATURE GRANULOCYTES 0.9 % (0-5); LYMPHOCYTES 12.2 % (15-50); MCH 31.5 pg (26.0-34.0); MCHC 32.6 g/dL (31.0-37.0); MCV 96.4 fL (80.0-100.0); MEAN PLATELET VOLUME 10.4 fL (7.4-10.4); MONOCYTES 7.4 % (2-11); NEUTROPHILS 78.5 % (40-80); PLATELET COUNT 96 10x3/uL (130-400); RBC 3.94 10x6/uL (4.20-6.10); RDW 14.7 % (11.5-14.5); WBC 8.2 10x3/uL (4.8-10.8)
[2019-08-05] VITALS: BP 156/62
--- NOTE | 2019-08-05 02:13 | NUR ---
I have reviewed this patient and I concur with the Shift Assessment completed by the Licensed Practical Nurse today this shift.
[2019-08-05 04:00] VITALS: BP 153/59
--- NOTE | 2019-08-05 06:11 | NUR ---
PT C/O HEADACHE, PRN TYLENOL #3 ADMINISTERED PER ORDERS.
[2019-08-05 07:28] LABS: BASOPHILS 0.1 % (0-2); EOSINOPHILS 1.3 % (0-7); HEMATOCRIT 35.2 % (42.0-54.0); HEMOGLOBIN 11.3 g/dL (13.5-17.5); IMMATURE GRANULOCYTES 1.2 % (0-5); LYMPHOCYTES 11.5 % (15-50); MCHC 32.1 g/dL (31.0-37.0); MCV 96.4 fL (80.0-100.0); MEAN PLATELET VOLUME 10.1 fL (7.4-10.4); MONOCYTES 7.2 % (2-11); NEUTROPHILS 78.7 % (40-80); PLATELET COUNT 84 10x3/uL (130-400); RBC 3.65 10x6/uL (4.20-6.10); RDW 14.7 % (11.5-14.5); WBC 7.5 10x3/uL (4.8-10.8)
[2019-08-05 07:40] LABS: CALC OSMOLALITY 273 mosm/kg (275-300); CALCIUM 7.1 mg/dL (8.5-10.1); CARBON DIOXIDE 21.2 mmol/L (21.0-32.0); CHLORIDE - SERUM 108 mmol/L (98-107); CREATININE - SERUM 0.8 mg/dL (0.6-1.3); GLUCOSE 72 mg/dL (74-106); SODIUM 137 mmol/L (136-145); eGFR NON AFRICAN AMERICAN > 90 mL/min (90-120)
[2019-08-05 07:41] LABS: UREA NITROGEN 14 mg/dL (7-18)
--- NOTE | 2019-08-05 07:45 | NUR ---
AM ROUNDS COMPLETED. INTRODUCED MYSELF TO PT PRIMARY RN FOR TODAYS SHIFT. PT IS A&O SITTING UP IN BED RESTING QUIETLY. SHIFT ASSESSMENT COMPLETED. NO IMMEDIATE NEEDS AT THIS TIME. WILL REVIEW CHART AND ORDERS AND CPOC.
[2019-08-05 09:00] VITALS: BP 141/56
[2019-08-05 09:11] LABS: AMYLASE - SERUM 60 U/L (25-115); LIPASE 101 U/L (73-393)
--- NOTE | 2019-08-05 10:18 | NUR ---
PT UNABLE TO TAKE MORNING MEDICATIONS R/T BEING NAUSEATED AND DRY HEAVING. PROVIDED PT WITH PRN ZOFRAN AND WILL CONTINUE TRYING.
--- NOTE | 2019-08-05 11:54 | NUR ---
PT FINALLY ABLE TO TAKE HIS PLAVIX BUT STILL REFUSED THE REST. PT IS GOING TO TRY AND EAT SOME JELLO AND SEE IF THE NAUSEA CAN STAY AWAY. FAMILY SURROUNDING BEDSIDE. NO CURRENT NEEDS. WILL CTM.
[2019-08-05 12:00] VITALS: BP 172/67
[2019-08-05 13:27] LABS: PLATELET ESTIMATE DECREASED
[2019-08-05 13:29] LABS: ROULEAUX OCC
--- NOTE | 2019-08-05 14:00 | NUR ---
PROVIDED PT WITH PRN ZOFRAN TO HELP KEEP HIS NAUSEA DOWN. PT VOICED THANKS AND IS RESTING QUIETLY IN BED WITH FAMILY AT BEDSIDE. CL IN REACH. WILL CTM.
--- NOTE | 2019-08-05 19:15 | NUR ---
REPORT RECEIVED, WILL CONTINUE POC. PATIENT IS AAOX4, LYING IN SEMI-FOWLERS POSITION. NO S/S OF DISTRESS OBSERVED, RR EVEN AND UNLABORED ON ROOM AIR. PIV TO RT WRIST, PATENT, INFUSING NS@100ML/HR, DRSG C/D/I. PATIENT DENIES NEEDS AT THIS TIME. CL IN REACH, BED LOCKED AND LOWERED. FAMILY AT BED SIDE. WILL CTM.
[2019-08-05 21:17] VITALS: BP 116/52
--- NOTE | 2019-08-05 21:50 | NUR ---
PT C/O NAUSEA AND PAIN. PRN DEMEROL AND ZOFRAN ADMINISTERED PER ORDERS. WILL CTM.
[2019-08-06 00:31] VITALS: BP 93/47
--- NOTE | 2019-08-06 04:03 | NUR ---
STUDENT OBTAINING PATIENT VS, AND EMPTIED 175CC STRAW-COLORED URINE FROM URINAL. PATIENT DENIES NEEDS AT THIS TIME. CL IN REACH, BED LOCKED AND LOWERED. WILL CTM.
[2019-08-06 04:40] VITALS: BP 138/55
[2019-08-06 06:08] LABS: CALC OSMOLALITY 274 mosm/kg (275-300); CALCIUM 7.1 mg/dL (8.5-10.1); CARBON DIOXIDE 22.7 mmol/L (21.0-32.0); CHLORIDE - SERUM 109 mmol/L (98-107); CREATININE - SERUM 0.9 mg/dL (0.6-1.3); GLUCOSE 94 mg/dL (74-106); POTASSIUM - SERUM 3.7 mmol/L (3.5-5.1); SODIUM 137 mmol/L (136-145); UREA NITROGEN 14 mg/dL (7-18); eGFR NON AFRICAN AMERICAN 85 mL/min (90-120)
[2019-08-06 07:17] LABS: BASOPHILS 0.2 % (0-2); EOSINOPHILS 0.8 % (0-7); HEMATOCRIT 33.8 % (42.0-54.0); HEMOGLOBIN 11.1 g/dL (13.5-17.5); IMMATURE GRANULOCYTES 0.8 % (0-5); LYMPHOCYTES 17.6 % (15-50); MCH 31.6 pg (26.0-34.0); MCHC 32.8 g/dL (31.0-37.0); MCV 96.3 fL (80.0-100.0); MEAN PLATELET VOLUME 10.9 fL (7.4-10.4); MONOCYTES 6.5 % (2-11); NEUTROPHILS 74.1 % (40-80); PLATELET COUNT 90 10x3/uL (130-400); RBC 3.51 10x6/uL (4.20-6.10); RDW 14.4 % (11.5-14.5); WBC 6.7 10x3/uL (4.8-10.8)
--- NOTE | 2019-08-06 07:27 | NUR ---
ROUNDING DONE WITH PATIENT ON BACK, HOB AT 45 DEGREES. ON 2L PER NC. PB MAT ALARM ON AND IN USE. CALL LIGHT IN USE. ON 2L PER NC. DENIES ANY NEEDS AT THIS TIME. STATES THAT HE HAS HIS NIGHTS AND DAYS MIXED UP. WILL ASSESS RIGHT FLANK WITH ASSESSMENT.
[2019-08-06 08:04] VITALS: BP 144/45
--- NOTE | 2019-08-06 08:06 | NUR ---
IV FLUIDS CONVERTED TO SALINE LOCK ORDERED. ORANGE SWAB CAP PLACED.
--- NOTE | 2019-08-06 09:54 | NUR ---
BILATRAL SCD'S PLACED ON PATIENT AND TURNED ON.
[2019-08-06 12:34] VITALS: BP 108/57
--- NOTE | 2019-08-06 12:59 | NUR ---
Nutrition Follow-up: Per chart review, noted pt with N/V yesterday; per MD, GI symptoms improving with potential d/c later today. Clear liquid diet since admit (3 days). No new wt; last wt: 183# (08/03) Labs noted: Ca 7.1 Meds noted: Prednisone, Pepcid, Zofran -On clear liquid diet since admit (3 days); rec ADAT. -Need new wt; noted daily wts ordered. -RD following.
--- NOTE | 2019-08-06 13:16 | NUR ---
DR PAYNE IN TO SEE PATIENT AT THIS TIME.
--- NOTE | 2019-08-06 13:38 | NUR ---
ASSSITED BACK TO BED WITH MAX X 2. PB MAT ALARM IS ON AND IN USE.
--- NOTE | 2019-08-06 15:21 | NUR ---
REPORT RECD FROM LIGIA MURDOCK RN. CARE OF PT ASSUMED. PT IS AAO X 4 SITTING IN BED WITH EYES OPEN. RESPIRATIONS ARE EVEN AND UNLABORED. PT DENIES PRESENCE OF N/V/DYSPNEA/SOB AT THIS TIME. BED IS IN THE LOWEST POSITION. CALL LIGHT AND BEDSIDE TABLE ARE WITHIN REACH. SIDE RAILS X 2. PT DENIES FURTHER NEEDS. WILL CONT TO MONITOR. ALL FALL PRECAUTIONS ARE IN PLACE.
[2019-08-06 16:11] VITALS: BP 114/63
--- NOTE | 2019-08-06 19:08 | NUR ---
REPORT RECEIVED, WILL CONTINUE POC. PATIENT IS AAOX4, UP TO THE BATHROOM. NO S/S OF DISTRESS OBSERVED, RR EVEN AND UNLABORED ON ROOM AIR. PIV TO RT WRIST, INFUSING NS@KVO. PATIENT DENIES NEEDS AT THIS TIME. CL IN REACH, BED LOCKED AND LOWERED. WILL CTM.
--- NOTE | 2019-08-06 19:16 | NUR ---
REPORT RECEIVED, WILL CONTINUE POC. PATIENT IS AAOX4, UP TO THE BATHROOM WITH MINIMAL ASSIST. NO S/S OF DISTRESS OF DISTRESS, RR EVEN AND UNLABORED ON ROOM AIR. PIV TO RT WRIST, INFUSING NS @KVO. PATIENT DENIES NEEDS AT THIS TIME. CL IN REACH, BED LOCKED AND LOWERED. PB ALARM ON. WILL CTM.
[2019-08-06 20:00] VITALS: BP 129/56
[2019-08-07] VITALS: BP 142/69
--- NOTE | 2019-08-07 03:42 | NUR ---
I have reviewed this patient and I concur with the Shift Assessment completed by the Licensed Practical Nurse today this shift.
[2019-08-07 04:00] VITALS: BP 148/77
[2019-08-07 04:57] LABS: BASOPHILS 0 % (0-2); EOSINOPHILS 0.1 % (0-7); HEMATOCRIT 36.1 % (42.0-54.0); HEMOGLOBIN 11.7 g/dL (13.5-17.5); IMMATURE GRANULOCYTES 0.4 % (0-5); LYMPHOCYTES 6.1 % (15-50); MCH 31.1 pg (26.0-34.0); MCHC 32.4 g/dL (31.0-37.0); MEAN PLATELET VOLUME 10.2 fL (7.4-10.4); MONOCYTES 4.9 % (2-11); NEUTROPHILS 88.5 % (40-80); PLATELET COUNT 99 10x3/uL (130-400); RBC 3.76 10x6/uL (4.20-6.10); RDW 14.5 % (11.5-14.5); WBC 7.2 10x3/uL (4.8-10.8)
[2019-08-07 05:28] LABS: CALC OSMOLALITY 276 mosm/kg (275-300); CALCIUM 7.8 mg/dL (8.5-10.1); CARBON DIOXIDE 22.6 mmol/L (21.0-32.0); CHLORIDE - SERUM 109 mmol/L (98-107); GLUCOSE 134 mg/dL (74-106); POTASSIUM - SERUM 4.2 mmol/L (3.5-5.1); SODIUM 137 mmol/L (136-145); UREA NITROGEN 14 mg/dL (7-18); eGFR NON AFRICAN AMERICAN 76 mL/min (90-120)
[2019-08-07] MEDS ORDERED: CIPRO250 MG PO (07:03)
[2019-08-07 09:55] VITALS: BP 159/70
--- NOTE | 2019-08-07 10:14 | MORECARE ---
CASE MANAGEMENT DISCHARGE SUMMARY PATIENT: JESSE BAILEY LEAH UNIT: [id number] ADM DATE: 08/03/19 AGE: 84 : 35 SEX: M ROOM/BED: D.2109 AUTHOR: PHILLY BOCANEGRA PHYSICIAN: REFERRING PHYSICIAN: ISRA LOUIS MD DATE OF SERVICE: 08/07/19 Discharge Plan Patient Name: JESSE BAILEY [facility] [facility] 1935 Planned Disposition: Home Anticipated Discharge Date: 08/07/19 Discharge Date: Expected LOS: 4 Initial Reviewer: [email or web address] Initial Review Date: 08/07/2019 Generated: 08/07/19 11:13 am Coverage Notice Reviewer: [email or web address] - Lonny Lawson Notice Issued Date-Time: 08/07/2019 8:25 Notice Type: IM Discharge Notice Notice Delivered To: Patient Relationship to Patient: Defense Travel Administrator Name: Delivery Method: HAND - Hand Delivered Dana Days: Prior Verbal Notification: Recipient Understood Notice: Yes Recipient Signature: Yes Med Rec Note Co-signed by Attending: Coverage Notice Comment: Patient Name: JESSE BAILEY Page [phone] at 1014 All edits/amendments must be made on the electronic document DICTATION DATE: 08/07/19 1013 RETENTION MANAGER: EVANGELINA 08/07/19 1013 RPT#: [id number] DC DATE: STATUS: ADM IN [place] [address] [place] [address] END OF REPORT
--- NOTE | 2019-08-07 10:20 | MORECARE ---
CASE MANAGEMENT DISCHARGE SUMMARY PATIENT: JESSE BAILEY UNIT: [id number] ADM DATE: 08/03/19 AGE: 84 : 35 SEX: M ROOM/BED: D.2106 AUTHOR: SAHRA,DOC PHYSICIAN: REFERRING PHYSICIAN: ISRA LOUIS MD DATE OF SERVICE: 08/07/19 Discharge Plan Patient Name: JESSE BAILEY Facility: [facility]:[place] : 1935 Planned Disposition: Home Anticipated Discharge Date: 08/07/19 Discharge Date: Expected LOS: 4 Initial Reviewer: [email or web address] Initial Review Date: 08/07/2019 Generated: 08/07/19 11:20 am Comments DCP- Discharge Planning Updated by [email or web address]: Lonny Lawson on 08/07/19 9:[address] Patient Name: JESSE BAILEY Admission Status: ER Accout number: [id number] Admission Date: 08-03-2019 : 1935 Admission Diagnosis: Attending: ISRA LOUIS Current LOS: 4 Anticipated DC Date: 08-07-2019 Planned Disposition: Home Primary Insurance: MEDICARE A & B Discharge Planning Comments: CM MET WITH PT IN ROOM TO DISCUSS DISCHARGE PLANNING AND NEEDS. PT REPORTS LIVING AT HOME INDEPENDENTLY WITH HIS . PT HAS CANE AND STANDARD WALKER WITH SEAT; PT HAS NO MEDICAL EQUIPMENT PROVIDER PREFERENCE. PT HAS NO OUTSIDE SERVICES ASSISTING IN THE HOME. CM DISCUSSED AVAILABILITY OF HOME HEALTH, REHAB SERVICES AND MEDICAL EQUIPMENT. PT DENIES DISCHARGE NEEDS, REPORTS HIS WILL PICK HIM UP FOR DISCHARGE HOME. IMPORTANT MESSAGE FROM MEDICARE PROVIDED AND EXPLAINED. Sticker On: Lonny Lawson DCPIA - Discharge Planning Initial Assessment Updated by [email or web address]: Lonny Lawson on 08/07/19 10:16 am * Is the patient Alert and Oriented? Yes * How many steps to enter\exit or inside your home? * PCP DR. LOUIS * Pharmacy [facility], [place] * Preadmission Environment Home with Family * ADLs Independent * Equipment Cane Walker * Other Equipment WALKER WITH SEAT NO MEDICAL EQUIPMENT PROVIDER PREFERENCE * List name and contact numbers for known caregivers / representatives who currently or will assist patient after discharge: KRISTOFER ROSE, * Verbal permission to speak to the caregivers and representatives has been obtained from the patient. Yes * Community resources currently utilized None * Please name any agencies selected above. NONE * Additional services required to return to the preadmission environment? No * Can the patient safely return to the preadmission environment? Yes * Has this patient been hospitalized within the prior 30 days at any hospital? No Coverage Notice Reviewer: [email or web address] Irma Lawson Notice Issued Date-Time: 08/07/2019 8:25 Notice Type: IM Discharge Notice Notice Delivered To: Patient Relationship to Patient: Counter Checker Name: Delivery Method: HAND - Hand Delivered Dana Days: Prior Verbal Notification: Recipient Understood Notice: Yes Recipient Signature: Yes Med Rec Note Co-signed by Attending: Coverage Notice Comment: Patient Name: JESSE BAILEY Page [phone] at 1020 All edits/amendments must be made on the electronic document DICTATION DATE: 08/07/19 1020 ASSISTANT STATISTICIAN: EVANGELINA 08/07/19 1020 RPT#: [id number] DC DATE: STATUS: ADM IN [facility] [address] [place] [address] END OF REPORT
--- NOTE | 2019-08-07 10:54 | NUR ---
IV AND TELEMETRY DCD. DC PLANS GIVEN. UNDERSTANDING VOICED. ESCORTED TO CAR BY W/C.
== END 2019-08-07 11:04 | disposition home or self-care (01) | DRG 391 ==
LOC: D.ER 17:36 → D.M2 22:25
PROVIDERS: Family Medicine; ADMIT Family Medicine; ATTEND Family Medicine
DX: K57.92 Diverticulitis of intestine, part unspecified, without perforation or abscess without bleeding (principal); I21.4 Non-ST elevation (NSTEMI) myocardial infarction; K66.1 Hemoperitoneum; I25.10 Atherosclerotic heart disease of native coronary artery without angina pectoris; I10 Essential (primary) hypertension; J44.9 Chronic obstructive pulmonary disease, unspecified; E78.5 Hyperlipidemia, unspecified; D64.9 Anemia, unspecified; I73.9 Peripheral vascular disease, unspecified

== ENCOUNTER 2020-01-14 14:07 | Emergency (ER) | payer MEDICARE, OTHER ==
[~2020-01-14 14:07] MED LIST changes: +CIPRO250 MG PO; +PREDNISOLONE 110 ML RIGHT EYE; +TRUSOPT 2 % OPT10 ML LEFT EYE
[2020-01-14 14:46] VITALS: Ht 175.3 cm
[2020-01-14 16:11] LABS: BASOPHILS 0.1 % (0-2); EOSINOPHILS 0.4 % (0-7); HEMATOCRIT 44.5 % (42.0-54.0); HEMOGLOBIN 14.4 g/dL (13.5-17.5); IMMATURE GRANULOCYTES 0.3 % (0-5); LYMPHOCYTES 7.8 % (15-50); MCH 30.8 pg (26.0-34.0); MCHC 32.4 g/dL (31.0-37.0); MCV 95.1 fL (80.0-100.0); MEAN PLATELET VOLUME 9.6 fL (7.4-10.4); MONOCYTES 5.7 % (2-11); NEUTROPHILS 85.7 % (40-80); PLATELET COUNT 117 10x3/uL (130-400); RBC 4.68 10x6/uL (4.20-6.10); RDW 13.3 % (11.5-14.5); WBC 7.2 10x3/uL (4.8-10.8)
[2020-01-14 16:29] LABS: ANION GAP 14.4 mmol/L (8-16); CALCIUM 9.3 mg/dL (8.5-10.1); CARBON DIOXIDE 21.7 mmol/L (21.0-32.0); CREATININE - SERUM 1.5 mg/dL (0.6-1.3); POTASSIUM - SERUM 4.1 mmol/L (3.5-5.1)
[2020-01-14 16:36] LABS: ALBUMIN 3.8 g/dL (3.4-5.0); BILIRUBIN - TOTAL 1.22 mg/dL (0.2-1.3); PROTEIN - SERUM 7.6 g/dL (6.4-8.2)
[2020-01-14 19:22] LABS: BILIRUBIN NEGATIVE (NEGATIVE); GLUCOSE NEGATIVE (NEGATIVE); KETONE SMALL mg/dL (NEGATIVE); NITRITE NEGATIVE (NEGATIVE); UROBILINOGEN NORMAL (NORMAL)
[2020-01-14 19:31] LABS: BACTERIA FEW /hpf (NEGATIVE); EPITHELIAL CELLS 0-5 /hpf (0-5); WHITE CELLS - URINE 0-5 /hpf (NEGATIVE)
[2020-01-14] MEDS ORDERED: KEFLEX500 MG PO (19:38)
[2020-01-14] MEDS ORDERED: HYDROCODON-ACE1 EAC7 PO (19:38)
[2020-01-14] MEDS ORDERED: FLOMAX0.4 MG PO (19:38)
[2020-01-14 19:55] VITALS: BP 164/81
== END 2020-01-14 19:55 | disposition home or self-care (01) ==
LOC: D.ER 14:07
PROVIDERS: Family Medicine
DX: N20.1 Calculus of ureter (principal); R10.32 Left lower quadrant pain; D72.829 Elevated white blood cell count, unspecified; N39.0 Urinary tract infection, site not specified; R11.10 Vomiting, unspecified

== ENCOUNTER → 2020-10-14 09:52 | Outpatient (CLI) | payer MEDICARE, OTHER ==
[2020-06-02 09:09] VITALS: BMI 25.1
[~2020-10-14 09:52] MED LIST changes: +FLOMAX0.4 MG PO; +HYDROCODON-ACE1 EAC7 PO; +KEFLEX500 MG PO; +LEVAQUIN750 MG PO; +TRIAMTERENE-HC1 EAC3 PO
== END | disposition home or self-care (01) ==
LOC: D.HCCECHO 09:52
PROVIDERS: ATTEND Internal Medicine Cardiovascular Disease
DX: I25.10 Atherosclerotic heart disease of native coronary artery without angina pectoris (principal)